=== PATIENT | female | born 1970 | race Caucasian/White ===

== ENCOUNTER 2017-07-08 21:10 | Emergency (ER) | payer OTHER ==
[~2017-07-08] VITALS: Ht 177.8 cm; Wt 50.0 kg
[2017-07-08 22:04] VITALS: BP 129/88
[2017-07-08] MEDS ORDERED: LIDOCAINE 1% MDV 20ML VIAL IM ONE (22:15)
[2017-07-08] MEDS ORDERED: ADACEL/BOOSTRIX VACCINE (DIPHTH/PERTUSS/ACELL/TETANUS)0.5ML SYR (90715) IM ONE (22:15)
[2017-07-08] MEDS ORDERED: AUGMENTIN 875 MG TAB PO ONE (22:15)
[2017-07-08] MEDS ORDERED: AUGM875T28 PO (22:59)
[2017-07-08] MEDS ORDERED: IBUPROFEN 400 MG TAB As Ordered ONE (23:09)
[2017-07-08] MEDS ORDERED: IBUPROFEN 400 MG TAB PO ONE (23:15)
== END 2017-07-08 23:16 | disposition home or self-care (01) ==
LOC: M ED 21:10
DX: S01.551A Open bite of lip, initial encounter (principal); W54.0XXA Bitten by dog, initial encounter; Y92.89 Other specified places as the place of occurrence of the external cause; Y93.89 Activity, other specified; Y99.8 Other external cause status; F17.210 Nicotine dependence, cigarettes, uncomplicated

== ENCOUNTER 2018-10-30 21:44 | Inpatient (IN) | payer OTHER, SELFPAY ==
[~2018-10-30] VITALS: Ht 177.8 cm; Wt 54.3 kg
[~2018-10-30 21:44] MED LIST: AUGM875T28 PO
[2018-10-30] MEDS ORDERED: METOPROLOL 5 MG/5 ML VIAL IV STA (22:30)
[2018-10-30] MEDS ORDERED: FLECAINIDE 50MG TABLET PO ONE (22:45)
[2018-10-30 22:53] LABS: BASO # 0.1 10^3/uL (0.0-0.2); BASO % 0.6 % (0.0-1.0); EOS # 0.5 10^3/uL (0.0-0.50); EOS % 2.6 % (0.0-3.0); LYMPH % 10.6 % (24.0-44.0); MEAN CORPUSCULAR HEMOGLOBIN 30.9 pg (27.0-33.0); MEAN CORPUSCULAR VOLUME 90.7 fl (80.0-96.0); MONO # 0.9 10^3/uL (0.0-0.8); MONO % 4.9 % (0.0-5.0); NEUTROPHILS # 14.9 10^3/uL (1.8-7.7); NEUTROPHILS % 80.2 % (36.0-66.0); PLATELET COUNT, AUTOMATED 291 10^3/uL (150-450); RED BLOOD COUNT 5.18 10^6/uL (4.00-5.40); WHITE BLOOD COUNT 18.6 10^3/uL (4.0-10.0)
[2018-10-30] MEDS ORDERED: ONDANSETRON 4MG/2ML VIAL (J2405) IV ONE (23:00)
[2018-10-30 23:27] LABS: BLOOD UREA NITROGEN 19 MG/DL (7-18); CALCIUM LEVEL 9.3 MG/DL (8.5-10.1); CARBON DIOXIDE LEVEL 21 MEQ/L (21-32); CHLORIDE LEVEL 95 MEQ/L (98-107); CREATININE FOR GFR 0.98 MG/DL (0.55-1.30); FREE THYROXINE INDEX 3.9 % (1.3-4.8); GLOMERULAR FILTRATION RATE > 60.0 (>58); GLUCOSE, FASTING 175 MG/DL (70-100); POTASSIUM SERUM 4.5 MEQ/L (3.5-5.1); SODIUM LEVEL 132 MEQ/L (136-145); T UPTAKE 32 % (30-39); THYROXINE (T4) 12.2 UG/DL (4.5-12.0)
[2018-10-30] MEDS ORDERED: ISOVUE-370 76% 100ML VIAL (Q9967) As Ordered ONE (23:51)
[2018-10-30 23:56] LABS: CK-MB VALUE MASS < 1.0 NG/ML (<3.6); CPK CREATINE PHOSPHOKINASE 38 U/L (26-192); MB/CK RELATIVE INDEX 2.63 (< OR =4); NT-PRO BNP 16196 PG/ML (<125); TROPONIN I 0.02 NG/ML (< 0.10)
[2018-10-31] VITALS (43 sets, daily range): BP systolic 71–105; BP diastolic 51–82; O2SAT 91
[2018-10-31] MEDS ORDERED: ALEV220T26 PO (00:39)
[2018-10-31] MEDS ORDERED: BENA25CA4 PO (00:39)
--- NOTE | 2018-10-31 00:49 | REPVR ---
EXAM: CT Angiography Chest With Contrast EXAM DATE/TIME: 10/30/2018 12:01 AM CLINICAL HISTORY: 48 years old, female; Signs and symptoms; Shortness of breath; Additional info: Eval r lung mass TECHNIQUE: Imaging protocol: Axial computed tomographic angiography images of the chest with intravenous contrast using CT angiography protocol. Coronal and sagittal reformatted images were created and reviewed. 3D rendering: MIP reconstructed images were created and reviewed. Radiation optimization: All CT scans at this facility use at least one of these dose optimization techniques: automated exposure control; mA and/or kV adjustment per patient size (includes targeted exams where dose is matched to clinical indication); or iterative reconstruction. Contrast material: isovue 370 Contrast volume: 75 ml Contrast route: iv COMPARISON: CR Chest, 1 view 10/30/2018 11:06 PM FINDINGS: No focal pulmonary artery filling defect to suggest acute pulmonary embolus. No thoracic aortic aneurysm or dissection. Prominent mediastinal and hilar lymphadenopathy is present. There is an infiltrative right hilar mass attenuating the distal right mainstem bronchus and segmental upper, middle and lower lobe bronchi with peripheral consolidation or postobstructive change. Large right and small left pleural effusions are present and there are diffuse ground glass densities in both lungs. No evidence of pneumothorax or pulmonary edema. No adrenal mass. No destructive bony abnormality. Likely exophytic upper pole 2 cm left renal cyst measuring simple fluid density IMPRESSION: No evidence of acute pulmonary embolus. Extensive infiltrative process in the mediastinum and right hilum with mass effect upon the right lung bronchi with peripheral consolidation or atelectasis and large pleural effusion, right larger than left. This is concerning for neoplastic or infiltrative process, with underlying diffuse lung infiltrates. Electronically signed by: Sacha Weldon On 10/31/2018 00:48:57 AM
[2018-10-31] MEDS ORDERED: NS 1,000 ML IV ONE ×3 (01:00→01:45)
[2018-10-31] MEDS ORDERED: ENOXAPARIN 40 MG/0.4 ML SYRINGE (J1650) SC SCH (01:30)
[2018-10-31] MEDS ORDERED: SODIUM CHLORIDE 0.9% 1000ML IV STA (01:40)
[2018-10-31] MEDS ORDERED: VANCOMYCIN 1000 MG/20 ML VIAL (J3370) IP ONE (01:45)
[2018-10-31] MEDS ORDERED: ENOXAPARIN 40 MG/0.4 ML SYRINGE (J1650) SC ONE (01:45)
--- NOTE | 2018-10-31 01:53 | HPEPDOC ---
[facility] Medical History & Physical Date of Admission Oct 31, 2018 Primary Care Physician: Afsaneh Batista History and Physical CHIEF COMPLAINT: Persistent cough HISTORY OF PRESENT ILLNESS: Patient's a 48 female with no reported past medical history brought into the ER with A. fib RVR with heart rate in the 250s. In ER patient was given flecainide and diltiazem with conversion to sinus rhythm. Patient appeared comfortable and only reported a persistent cough for the past 3 months. She was found to be hypotensive with elevated white count and a large right hilar mass with extensive infiltrative process in the ER. She is a current smoker of one half pack per day for many years. She reports a 15 lbs weight loss in the past 3 months but denies any fever, chills, or any other complaints. She remained hypotensive in ER despite IV resuscitation. Normally does not follow any doctor and reported no medical problems and does not take any medications prior to this admission. PAST MEDICAL HISTORY: None reported PAST SURGICAL HISTORY: b/l Hip surgeries Tonsillectomy SOCIAL HISTORY: extensive smoking history for many years, currently at 1/2 ppd. Social alcohol use and denies any illicit drug use. FAMILY HISTORY: No known Medical problems ALLERGIES: Please see below. REVIEW OF SYSTEMS: 10 point review of system negative except as stated in HPI HOME MEDICATIONS: Please see below. PHYSICAL EXAMINATION: General: No acute distress, Alert, cachectic Eyes: Normal sclera, EOMI, GENE HENT: Atraumatic, neck supple, moist mucous membranes Cardiovascular: Normal rate, normal rhythm. No murmurs appreciated. Pulmonary: Decrease R. sided breath sounds. GI: Soft, nontender, nondistended Skin: Warm and dry Neuro: CN grossly intact. No focal deficits. Strengths equal b/l. Psych: oriented x 3 LABORATORY DATA: See below. IMAGING: CTA- IMPRESSION: No evidence of acute pulmonary embolus. Extensive infiltrative process in the mediastinum and right hilum with mass effect upon the right lung bronchi with peripheral consolidation or atelectasis and large pleural effusion, right larger than left. This is concerning for neoplastic or infiltrative process, with underlying diffuse lung infiltrates. MICROBIOLOGY: Please see below. ASSESSMENT AND PLAN: 1. R. sided lung mass with pleural effusions - CT report as above. Likely malignancy given extensive smoking history. - Oxygen support. - Consult Onc and Pulm. Will need tissue biopsy for treatment initiation. 2. new onset Atrial fibrillation - Start on therapeutic Lovenox. - Currently in sinus rhythm s/p flecanide and Diltiazem. - Will start on BB for rate control. - Obtain ECHO. 3. Sepsis 2/2 likely obstructive PNA - Hypotensive. To complete 30cc/kg IVF bolus. - Start broad spectrum aBx. - f/u sputum and blood cultures. - Will likely need initiation of pressors as BP is not improving yet at this time. - f/u Lactic acid. WBC 18, hypotensive. Patient is high risk due to septic shock and R. lung mass likely 2/2 malignancy Estimated length of stay 4-5 days with expected disposition to to home. Vital Signs Vital Signs Date Time Temp Pulse Resp B/P (MAP) Pulse Ox O2 Delivery O2 Flow Rate FiO2 10/31/18 01:21 81/52 (62) 10/31/18 01:17 83 30 82 Non-Rebreather 10/31/18 01:02 6.0 10/30/18 21:44 97.6 Laboratory Data Labs 24H Laboratory Tests 2 10/30/18 22:44: Immature Granulocyte % (Auto) 1.1, White Blood Count 18.6H, Red Blood Count 5.18, Hemoglobin 16.0H, Hematocrit 47.0, Mean Corpuscular Volume 90.7, Mean Corpuscular Hemoglobin 30.9, Mean Corpuscular Hemoglobin Concent 34.0, Red Cell Distribution Width 13.2, Platelet Count 291, Neutrophils (%) (Auto) 80.2H, Lymphocytes (%) (Auto) 10.6L, Monocytes (%) (Auto) 4.9, Eosinophils (%) (Auto) 2.6, Basophils (%) (Auto) 0.6, Neutrophils # (Auto) 14.9H, Lymphocytes # (Auto) 2.0, Monocytes # (Auto) 0.9H, Eosinophils # (Auto) 0.5, Basophils # (Auto) 0.1, Nucleated Red Blood Cells % (auto) 0.0, Anion Gap 16, Glomerular Filtration Rate > 60.0, Blood Urea Nitrogen 19H, Creatinine 0.98, Sodium Level 132L, Potassium Level 4.5, Chloride Level 95L, Carbon Dioxide Level 21, Calcium Level 9.3, Total Creatine Kinase 38, Creatine Kinase MB < 1.0, Creatine Kinase MB Relative Index 2.63, Troponin I 0.02, UX-Akk-J-Type Natriuretic Peptide 03377K, Thyroid Stimulating Hormone (TSH) 5.390H, Free Thyroxine Index 3.9, Thyroxine (T4) 12.2H, Triiodothyronine (T3) Uptake 32 CBC/BMP Laboratory Tests 10/30/18 22:44 Red Blood Count 5.18, Mean Corpuscular Volume 90.7, Mean Corpuscular Hemoglobin 30.9, Mean Corpuscular Hemoglobin Concent 34.0, Red Cell Distribution Width 13.2 , Neutrophils (%) (Auto) 80.2 H, Lymphocytes (%) (Auto) 10.6 L, Monocytes (%) (Auto) 4.9, Eosinophils (%) (Auto) 2.6, Basophils (%) (Auto) 0.6, Neutrophils # (Auto) 14.9 H, Lymphocytes # (Auto) 2.0, Monocytes # (Auto) 0.9 H, Eosinophils # (Auto) 0.5, Basophils # (Auto) 0.1, Calcium Level 9.3, Total Creatine Kinase 38 Home Medications Scheduled PRN Diphenhydramine HCl (Benadryl Allergy) 25 Mg Cap, 25 MG PO DAILY PRN for ALLERGIES Naproxen Sodium (Aleve) 220 Mg Tab, 220 MG PO BID PRN for PAIN Allergies Coded Allergies: No Known Allergies (Unverified , 07/08/17) FRANC GARCIA MD Oct 31, 2018 01:53
[2018-10-31] MEDS ORDERED: ENOXAPARIN 60 MG/0.6 ML SYR (J1650) SC SCH ×2 (02:00→03:00)
[2018-10-31] MEDS ORDERED: VANCOMYCIN HCL 1,000 MG, VIAL MATE ADAPTER 1 EACH in D5W 250 ML IV ONE (02:00)
[2018-10-31] MEDS ORDERED: METOPROLOL TART 25 MG TABLET PO SCH ×2 (03:15→09:00)
--- NOTE | 2018-10-31 05:34 | PHACANCOPD ---
PHARMACY VANCOMYCIN DOSING Pt Demographics Demographics Patient Age:48 , Weight:55.400 , Gender: female Adjusted Body Weight Date: 10/31/18, Adjusted Body Weight: Kg Vancomycin Vancomycin indication: PLEURAL EFFUSION,LUNG MASS/SEPSIS Vancomycin Target Ranges: 15-20 mcg/ml Vancomycin Load Y/N: No Load Dose Date Time Vancomycin Load Dose: Date: Time: Vancomycin Dose Date: 10/31/18. Current Vancomycin Dose: [1 GM Q12H ] Intermittent Dosing?: No Labs Labs Laboratory Tests 10/30/18 22:44 Red Blood Count 5.18, Mean Corpuscular Volume 90.7, Mean Corpuscular Hemoglobin 30.9, Mean Corpuscular Hemoglobin Concent 34.0, Red Cell Distribution Width 13.2, Neutrophils (%) (Auto) 80.2 H, Lymphocytes (%) (Auto) 10.6 L, Monocytes (%) (Auto) 4.9, Eosinophils (%) (Auto) 2.6, Basophils (%) (Auto) 0.6, Neutrophils # (Auto) 14.9 H, Lymphocytes # (Auto) 2.0, Monocytes # (Auto) 0.9 H, Eosinophils # (Auto) 0.5, Basophils # (Auto) 0.1, Calcium Level 9.3, Total Creatine Kinase 38 Micro Microbiology 10/31/18 Blood Culture, Received Pending 10/31/18 Blood Culture, Received Pending Creatinine Clearance Date:10/31/18. Creatinine Clearance: [58.5].CALCULATED Pending Labs Vancomycin trough scheduled for 11/01@1500- Assessment and Plan Maintaining Current Dose?: Yes Reason for dose change: No Dose Change Pharmacist Note Pharmacist Note Date: 10/31/18. Pharmacist note:48YOF admitted w/SOB.pleural effusion,sepsisScr=0.98,Calculated CRCL=58.5,Receiving Pip[/Tazo 4.5 grams IV T1Ylune and Vancomycin per Pharmacy consult. Vancomycin 1gram administered @0423, then will continue with 1 gram IV [id number] to begin 10/31@1600.First trough is acheduled for 11/01@1500(prior to the 4th dose).Will continue to follow and make dosing changes as necessary YAMILKA [facility] Oct 31, 2018 05:34
[2018-10-31] MEDS: PIPERACILLIN/TAZOBACTAM SOD 4.5 GM in D5W MINI-BAG PLUS 50 ML IV SCH ×4 (05:40→23:56)
[2018-10-31 06:51] LABS: HEMATOCRIT 34.4 % (36.0-47.0); MEAN CORPUSCULAR HEMOGLOBIN 30.3 pg (27.0-33.0); MEAN CORPUSCULAR HGB CONC 33.4 g/dl (32.0-36.5); MEAN CORPUSCULAR VOLUME 90.8 fl (80.0-96.0); PLATELET COUNT, AUTOMATED 203 10^3/uL (150-450); RED BLOOD COUNT 3.79 10^6/uL (4.00-5.40); WHITE BLOOD COUNT 17.6 10^3/uL (4.0-10.0)
[2018-10-31 06:58] LABS: HEMOGLOBIN 11.5 g/dl (12.0-15.5)
[2018-10-31 07:11] LABS: BLOOD UREA NITROGEN 19 MG/DL (7-18); CARBON DIOXIDE LEVEL 25 MEQ/L (21-32); CHLORIDE LEVEL 102 MEQ/L (98-107); CREATININE FOR GFR 0.69 MG/DL (0.55-1.30); GLOMERULAR FILTRATION RATE > 60.0 (>58); GLUCOSE, FASTING 128 MG/DL (70-100); POTASSIUM SERUM 3.9 MEQ/L (3.5-5.1); SODIUM LEVEL 135 MEQ/L (136-145)
--- NOTE | 2018-10-31 07:38 | ECGEPIP ---
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
--- NOTE | 2018-10-31 07:40 | ECGEPIP ---
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
[2018-10-31 07:56] LABS: ALBUMIN 1.6 GM/DL (3.2-5.2); ALT/SGPT 9 U/L (12-78); BILIRUBIN,DIRECT 0.2 MG/DL (0.0-0.2); BILIRUBIN,TOTAL 0.4 MG/DL (0.2-1.0); TOTAL PROTEIN 5.1 GM/DL (6.4-8.2)
--- NOTE | 2018-10-31 08:22 | REP ---
Clinical: Line placement. Technique: Portable semiupright view of the chest. Comparison: 10/30/2018. Findings: Right IJ line with tip in the SVC. Diffuse bilateral alveolar and interstitial infiltrates (right greater than left) along with moderate/large right pleural effusion again noted. No obvious pneumothorax. Mediastinum and cardiac silhouette are relatively stable. Skeletal structures are intact. Impression: Right IJ line in satisfactory position without pneumothorax. Diffuse bilateral infiltrates (right greater than left) and moderate/large right pleural effusion. Electronically Signed by Khadar Padilla MD 10/31/2018 08:13 A
--- NOTE | 2018-10-31 08:36 | REP ---
Clinical: Dyspnea. Comparison: None. Findings: Diffuse bilateral infiltrates (right greater than left) and moderate right pleural effusion. Mild cardiomegaly cannot be excluded. Skeletal structures appear intact. Impression: Multifocal infiltrates (right greater than left) and moderate right pleural effusion. Electronically Signed by Khadar Padilla MD 10/31/2018 08:27 A
[2018-10-31] MEDS ORDERED: MAGNESIUM SULFATE 1 GM/100 ML D5W BAG (10MG/ML) (J3475) As Ordered ONE (09:51)
[2018-10-31] MEDS ORDERED: MAG SULF 1GM/100ML (MAG RUN) 1 GM in APPROPRIATE DILUENT 1 EA IV ONE (10:00)
[2018-10-31] MEDS ORDERED: AMIODARONE HCL 150 MG/100 ML PREMIXED BAG (NEXTERONE) As Ordered ONE (10:01)
[2018-10-31] MEDS ORDERED: AMIODARONE HCL 150 MG in APPROPRIATE DILUENT 1 EA IV STA ×2 (10:07→21:57)
[2018-10-31 10:20] LABS: CK-MB VALUE MASS < 1.0 NG/ML (<3.6); CPK CREATINE PHOSPHOKINASE 21 U/L (26-192); MB/CK RELATIVE INDEX 4.76 (< OR =4); TROPONIN I 0.02 NG/ML (< 0.10)
[2018-10-31] MEDS ORDERED: MIDAZOLAM INJ 2 MG/2 ML VIAL (J2250) As Ordered ONE (10:25)
[2018-10-31] MEDS ORDERED: LIDOCAINE 1% MDV 20ML VIAL As Ordered ONE (10:26)
[2018-10-31] MEDS ORDERED: AMIODARONE HCL 360 MG in APPROPRIATE DILUENT 1 EA IV SCH (11:00)
[2018-10-31] MEDS ORDERED: MIDAZOLAM INJ 2 MG/2 ML VIAL (J2250) IV STA (11:29)
[2018-10-31] MEDS ORDERED: LIDOCAINE 1% MDV 20ML VIAL IM ONE (11:30)
[2018-10-31] MEDS ORDERED: BISACODYL 10 MG SUPP PR PRN (11:45)
[2018-10-31] MEDS ORDERED: NORCO, ANEXSIA 5/325MG TABLET (HYDROcodone/ACETAMINOPHEN) PO PRN (11:45)
[2018-10-31] MEDS ORDERED: LEVALBUTEROL 1.25 MG/0.5 ML CONCENTRATE NEB NEB PRN (11:45)
[2018-10-31] MEDS ORDERED: PERCOCET 5MG/325MG TAB PO PRN ×2 (11:45)
[2018-10-31] MEDS ORDERED: KETOROLAC 30 MG/ML VIAL (J1885) IV ONE (12:00)
[2018-10-31] MEDS: PANTOPRAZOLE 40MG TAB (PROTONIX) PO SCH (12:00)
--- NOTE | 2018-10-31 12:01 | REP ---
Clinical: Status post chest tube. Comparison: 10/31/1998 02:38 a.m. Findings: Right chest tube identified. A moderate right pneumothorax is now appreciated without obvious pleural fluid. Bilateral infiltrates again identified. Right IJ line with tip in the SVC. Mediastinum and cardiac silhouette are stable. Skeletal structures are intact. Impression: 1. Right chest tube with moderate right hemothorax. Right pleural fluid has been evacuated. 2. Bilateral infiltrates unchanged. Electronically Signed by Khadar Padilla MD 10/31/2018 11:52 A
--- NOTE | 2018-10-31 12:36 | CR ---
DATE OF CONSULTATION: 10/31/2018 REFERRING PHYSICIAN: Hospitalist Service, Dr. Rodriguez. REASON FOR CONSULTATION: Shortness of breath and pleural effusion along with a lung mass. HISTORY OF PRESENT ILLNESS: Patient is a 48-year-old white female whose story starts approximately three months ago when she started to develop a cough. It was a dry nonproductive cough. In the last few weeks she has become more progressively shortness of breath such that the last couple of days prior to admission, she has had trouble even walking around her house. She does not complain of orthopnea or paroxysmal nocturnal dyspnea, however. She does not complain of leg swelling. There is no chest pain, no chest discomfort. As noted above her cough is not productive but quite paroxysmal and intense. With her cough she sometimes becomes nauseous. She has lost about 15 pounds of weight over the last two months because of decreased appetite. There is no dysphagia. She is able to swallow. There has been no fever, chills or sweats. PAST MEDICAL ILLNESSES: None. MEDICATIONS AT HOME: None. PAST SURGERIES: Two hip replacements. Tonsillectomy in the remote past. TRAVEL HISTORY: None to the [facility] or [facility]. HABITS: Smoked one pack per day of [employer] Golds until about 3 weeks ago. Drinks at least 20 shots of tequila a day. No illicit drugs. 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 There is no asbestos exposure. There is no tuberculosis exposure. PETS: There are no dogs, birds or cats at home. FAMILY HISTORY: Noncontributory to the acute situation. REVIEW OF SYSTEMS: Eyes: Without diplopia, without amaurosis fugax. Constitutional: See HPI. Without fever, chills or sweats. Nose: Without epistaxis. Mouth: Has her own teeth. Respiratory: See HPI. Cardiac: See HPI. Without chest pain or anginal type pain. Without tachycardia or palpitations. Gastrointestinal (GI): Without nausea, vomiting, diarrhea or constipation, except for when she goes into severe paroxysmal cough. Without melena or hematochezia, hematemesis or abdominal pain. Genitourinary (): Without dysuria, hematuria or prior history of renal stones. Neurologic: Without paresthesias, paralysis or prior seizures. Endocrine: Without diabetes. Without thyroid disease. Hematologic: Without prolonged bleeding times. Psychiatric: Without pathologic psychoses, depression or anxiety. PHYSICAL EXAMINATION: Temperature is 96.4 with a heart rate of 88, now in a sinus rhythm although she has been in ventricular tachycardia for which she is receiving amiodarone. Respiratory rate is 28 to 26 with some use of accessory muscles, particularly cervical accessory muscles. She gets short of breath even speaking full sentences. She is 88% saturated on 3 liters nasal cannula and her blood pressure is 92/71. Eyes: Pupils equal, round and reactive to light. Extraocular muscles intact. Sclera anicteric. Head: Normocephalic. Nose: Without deformity. Mouth: Shows her mucous membranes to be pink and moist. Lips and commissures are without lesions. There is no thrush. She has a tongue piercing. Neck is supple. There is no jugular venous distention, no subcutaneous emphysema. Trachea is midline. There is no thyromegaly and no lymphadenopathy. She has 2+ carotid upstrokes. No bruits. Cardiac: Without murmurs, clicks, gallops or rubs. I cannot feel his point of maximal impulse (PMI), S1 and S2 are normal. Lungs: Show decreased breath sounds in the right lower hemithorax with E:A egophony. Left side shows some inspiratory rhonchi which do not all disappear with coughing. She has a dull percussion note and partial E:A egophony in the right lower hemithorax. Abdomen: Soft and nontender. Bowel sounds are positive. There is no hepatomegaly. There is no costovertebral angle (CVA) tenderness. Extremities: Show no pretibial edema, no calf tenderness. No differential swelling of the upper extremities. Skin: Warm and dry, and perfused without cyanosis or mottling including that of the nail beds and the knees. Neuro: Shows II through XII intact. Gross motor and gross sensation intact. Gait is not tested. Psychiatric: Shows her to be awake, alert and oriented times three, with appropriate mood, affect, with appropriate anxiety from shortness of breath. INVESTIGATIONS: White count is 17.6, with a hemoglobin and hematocrit of 11.5 and 34.4 respectively, and a platelet count of 203. Chemistries show essentially normal electrolytes with BUN and creatinine of 19 and 0.69. Her lactic acid this morning was 3.0 and 2.3. Glucose is 128 with a calcium of 7.0 with a corresponding albumin of 1.6. AST and ALT are normal. Her TSH is 5.39, within normal limits. Chest x-ray taken yesterday in the emergency room shows a diffuse alveolar pattern in the right lung with an elevated diaphragm and a blunted costophrenic angle. Her left lung also has a reticular pattern. There is no lateral view. Her chest CT done yesterday under CT angio protocol did not show a pulmonary embolism. She had a large pleural effusion on the right hand side. There looks to be a large mass in the right upper lobe. There may be an element of post obstructive atelectasis. She has a ground glass appearance in the lingular aspects of the left upper lobe. She does not have pathological mediastinal and paratracheal lymphadenopathy. There is a distinct fullness below the hayder, although that may be direct mass effect rather than a lymph node. She has periaortic and hilar nodes on the left. There is no pericardial effusion. IMPRESSION: 1. Right upper lobe lung mass. 2. Large pleural effusion. 3. Increasing shortness of breath secondary to 1 and 2 above. 4. Ventricular tachycardia being treated with amiodarone. 5. Hypoxia. 6. Lactic acidemia. 7. Probable post obstructive atelectasis. PLAN AND DISCUSSION: I will immediately place a chest tube to drain her of her pleural effusion. That should symptomatically help her shortness of breath. We will send it away for the requisite laboratories including cytologies, hematology, chemistries and bacteriologies. I do not see any lumps and bumps on the pleural surface, but I suspect this is going to prove to be malignant.
[2018-10-31 12:43] LABS: CK-MB VALUE MASS < 1.0 NG/ML (<3.6); CPK CREATINE PHOSPHOKINASE 25 U/L (26-192); TROPONIN I 0.03 NG/ML (< 0.10)
[2018-10-31] MEDS: MOM 30ML SUSPENSION UDC PO SCH (12:58)
[2018-10-31 13:23] LABS: PH BODY FLUID 7.598 UNITS (NOT ESTABLISHED); SOURCE, BODY FLUID pH PLEURAL
[2018-10-31 13:30] LABS: APPEARANCE, BODY FLUID HAZY (CLEAR); PLEURAL FL COLOR AMBER (COLORLESS); SOURCE, BODY FLUID PLEURAL
[2018-10-31 13:51] LABS: MAGNESIUM LEVEL 2.3 MG/DL (1.8-2.4)
--- NOTE | 2018-10-31 14:06 | CR ---
DATE OF CONSULTATION: 10/31/2018 HISTORY OF PRESENT ILLNESS: The patient is a 48-year-old female with no reported medical history who presented with a complaint of a cough for the past 3 months with increasing shortness of breath and dyspnea on exertion. The patient had also reported a decreased appetite in the past few months with a significant weight loss of approximately 15 pounds in the past 2 months. The patient reports that the cough has been nonproductive. There is no hemoptysis noted. She denied any significant wheezing or chest pain. She has started noticing worsening shortness of breath and dyspnea in the past few days. However, she had been attempting to see if her symptoms would resolve on their own, as she does not have any insurance until it progressed to the point where she was short of breath with very limited activity, and so she presented to the emergency department (ED). She denied any increased lower extremity edema. She had no abdominal pain. Occasionally nauseous with coughing but no vomiting. She did report a history of some palpitations occasionally in the past few months, as well. She denied having any history of fevers or chills. No night sweats. In the ED, the patient was found to be tachycardic. Her heart rate initially on admission was above 220. She was also hypotensive on admission. The patient was given approximately 3 liters of normal saline boluses in the ED, as well as intravenous (IV) Cardizem, metoprolol, and also flecainide. The patient then converted into a sinus rhythm. She was also hypoxemic, as well, on admission and tachypneic. She was placed on nasal cannula. However, had required a nonrebreather at one point, as well. This morning, on examination, the patient is in sinus rhythm. However, she has frequent runs of nonsustained ventricular tachycardia (NSVT) and occasionally will go into rapid atrial fibrillation. She is still tachypneic with a respiratory rate around 28, and her blood pressures are borderline. The patient is requiring 4 liters of nasal cannula oxygen supplementation, and she will desaturate with talking or any minimal movement. She does report feeling better, however, since being admitted. Her shortness of breath has improved slightly, and her coughing has also slightly improved. PAST MEDICAL HISTORY: None. PAST SURGICAL HISTORY: History of hip replacements and a tonsillectomy. HOME MEDICATIONS: None. SOCIAL HISTORY: The patient is a former smoker, smoked about one pack a day for the past 30 years, quit a few weeks ago. She also drinks approximately twenty shots of tequila a day. She denies any other illicit drug use. 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 Denied any exposure to any toxins or chemicals. No exposure to asbestos or tuberculosis. She has no recent travel. FAMILY HISTORY: Denied a family history of lung cancer. PHYSICAL EXAMINATION: Vital signs: Temperature 96.4, pulse 88, respirations 27, blood pressure 93/65, oxygen (O2) saturation 92% on 4 liters nasal cannula. General: The patient is a thin female who is lying in bed in some mild respiratory distress. She is tachypneic and able to speak in short sentences. She is alert and oriented and responding appropriately. HEENT: Normocephalic, atraumatic. Mucous membranes are moist. She has a tongue piercing in place. There is no palpable cervical adenopathy. Cardiac is regular rate and rhythm. Normal S1, S2. No murmurs auscultated. Lungs: Diminished breath sounds in the right mid and lower lung parnell with some dullness to percussion. Left side with some crackles and occasional rhonchi. No significant wheezing. Abdomen is soft, nontender, nondistended. There is positive bowel sound. Extremities: There is no lower extremity edema bilaterally. LABORATORIES: WBC 17.6, hemoglobin 11.5, platelets 203. Chemistry: Sodium 135, potassium 3.9, chloride 102, bicarbonate 25, BUN 19, creatinine 0.69, glucose 128, lactic acid initially 3.0 -- repeat was 2.3, albumin is 1.6, BNP was 16,196, TSH is 5.39, free T4 was 3.9, and T4 was 12.2. CT angiography did not show any evidence of pulmonary embolism. There was mediastinal and hilar lymphadenopathy noted, as well as a right hilar mass with some extrinsic narrowing of the right upper lobe, middle lobe, and bronchus intermedius. There was also some consolidation and possible postobstructive atelectasis in the right lung. There was also a large right pleural effusion causing some compressive atelectasis. On the left, there is a small pleural effusion and some ground-glass opacities, more in the left upper lobe and lingula and some more denser consolidation and ground-glass opacities in the left lower lobe. There is no significant pericardial effusion. ASSESSMENT AND PLAN: The patient is a 48-year female who is a former smoker with no other reported medical history who presented with increasing shortness of breath and dyspnea on exertion, as well as with a chronic nonproductive cough for the past few months and weight loss. She was found to have new-onset atrial fibrillation on admission, was in rapid ventricular response (RVR), was given medications, including Cardizem, metoprolol, and flecainide and was chemically cardioverted to sinus rhythm. The patient continues to have periods of ventricular ectopy, however, while in sinus with runs of NSVT noted. She will also periodically go into rapid atrial fibrillation. Her initial cardiac enzymes were negative. However, her brain natriuretic peptide (BNP) was elevated at 16,196. The patient was also hypotensive on admission with lactic acidosis and leukocytosis. The patient likely with severe sepsis likely secondary to pneumonia. She was given about 3-4 liters of normal saline boluses with improvement in her blood pressure and in her lactic acid. She is currently maintaining a blood pressure without a need for vasopressor support, and she was started on broad-spectrum antibiotics with vancomycin and Zosyn. The patient's imaging showed evidence of a large right pleural effusion with a right hilar mass causing some extrinsic compression and possible postobstructive pneumonia on thatright side. There was also mediastinal and hilar adenopathy, as well. She had a small effusion on the left side and some ground- glass opacities and consolidation, as well, consistent with possible pneumonia. The patient with acute hypoxemic respiratory failure secondary to a large pleural effusion, as well as pneumonia bilaterally. The patient also with severe sepsis, likely secondary to pneumonia with a possible complicated parapneumonic effusion versus malignant effusion, given the suspicious finding of a right hilar mass. The patient was seen by cardiothoracic surgery and had a chest tube placed on the right side with drainage of 2 liters of fluid. A postprocedural chest x-ray shows the evacuation of the right pleural fluid and a right pneumothorax. Likely, pneumothorax ex vacuo. There is a right internal jugular (vein) (IJ) with the tip located in right atrium and there are infiltrates noted bilaterally with a more central hilar mass on the right side and infiltrates in the left upper lobe and left lower lobe. Continue broad-spectrum antibiotics with vancomycin and Zosyn. Would followup blood cultures and sputum cultures. Continue with nasal cannula oxygen supplementation to maintain O2 saturation above 90%. If patient is noted to be in increasing respiratory distress or has any change in mental status, would get an arterial blood gas (ABG) done at that time to evaluate for any hypercarbia. Given her persistent ventricular ectopy, as well as atrial fibrillation with borderline blood pressures, will hold beta blockers and will start the patient on amiodarone with IV loading dose. Will also pull back central line 3cm as it is in right atrium and may be contributing to her ectopy. Will followup repeat cardiac enzymes and echocardiogram. Continue with incentive spirometer and with Xopenex nebulizer. Continue chest tube to suction and will followup results of the fluid studies, including cytology. Would hold off on any further fluid hydration at this time. If patient has worsening hypertension, would start her on pressor support with Levophed. Discussed with the patient that depending on the results of her pleural fluid studies that she may require further diagnostic procedure, including a bronchoscopy with biopsy and endobronchial ultrasound (EBUS) for her adenopathy. continue with deep venous thrombosis (DVT) prophylaxis with Lovenox and sequential compression devices (SCDs). FULL CODE. Total critical care time spent not including any procedures approximately 1 hour and 50 minutes. FRED
[2018-10-31 14:21] LABS: AMYLASE, BODY FLUID 33 U/L (NOT ESTABLISHED); CHOLESTEROL, BODY FLUID 64 MG/DL (NOT ESTABLISHED); LDH, BODY FLUID 1225 U/L (NOT ESTABLISHED); SOURCE, BODY FLUID ALBUMIN PLEURAL; SOURCE, BODY FLUID AMYLASE PLEURAL; SOURCE, BODY FLUID CHOL PLEURAL; SOURCE, BODY FLUID GLUCOSE PLEURAL; SOURCE, BODY FLUID LDH PLEURAL; SOURCE, BODY FLUID TOT PROTEIN PLEURAL; SOURCE, BODY FLUID TRIG PLEURAL; TOTAL PROTEIN, BODY FLUID 3.6 G/DL (NOT ESTABLISHED); TRIGLYCERIDE, BODY FLUID 26 MG/DL (NOT ESTABLISHED)
[2018-10-31] MEDS ORDERED: NOREPINEPHRINE 4 MG/4 ML AMP As Ordered ONE ×2 (14:52→14:55)
[2018-10-31 14:58] LABS: HEMATOCRIT 34.8 % (36.0-47.0); HEMOGLOBIN 11.7 g/dl (12.0-15.5); MEAN CORPUSCULAR HEMOGLOBIN 30.5 pg (27.0-33.0); MEAN CORPUSCULAR HGB CONC 33.6 g/dl (32.0-36.5); MEAN CORPUSCULAR VOLUME 90.9 fl (80.0-96.0); PLATELET COUNT, AUTOMATED 227 10^3/uL (150-450); RED BLOOD COUNT 3.83 10^6/uL (4.00-5.40); WHITE BLOOD COUNT 19.9 10^3/uL (4.0-10.0)
--- NOTE | 2018-10-31 15:00 | REP ---
Clinical: Pneumothorax. Technique: Portable upright view. Comparison: 10/31/2018 at 11:30 a.m. Findings: Right-sided chest tube in stable position. Small residual right hydropneumothorax with small amount of pleural fluid causing blunting of the costophrenic angle and small pleural air gap at the apex of approximately 16 mm. Diffuse bilateral interstitial and alveolar infiltrates are again identified and similar to prior examination. Skeletal structures intact. Right IJ line with tip in the SVC. Impression: 1. Small residual right hydropneumothorax as described above. 2. Diffuse bilateral alveolar and interstitial infiltrates essentially unchanged. Electronically Signed by Khadar Padilla MD 10/31/2018 02:51 P
[2018-10-31] MEDS: NOREPINEPHRINE BITARTRATE 8 MG in D5W 492 ML IV SCH ×4 (15:05→16:00)
--- NOTE | 2018-10-31 15:35 | REP ---
Clinical: Pneumothorax. Technique: Portable upright view. Comparison: 10/31/2018 at 02:40 p.m. Findings: Right-sided chest tube in similar position. Small residual right hydropneumothorax with small amount of pleural fluid causing blunting of the costophrenic angle and small pleural air gap at the apex remain unchanged. Diffuse bilateral interstitial and alveolar infiltrates are again identified and similar to prior examination. Skeletal structures intact. Right IJ line with tip in the SVC. Impression: 1. Small residual right hydropneumothorax as described above. 2. Diffuse bilateral alveolar and interstitial infiltrates essentially unchanged. Electronically Signed by Khadar Padilla MD 10/31/2018 03:26 P
[2018-10-31 15:36] LABS: ALBUMIN 1.5 GM/DL (3.2-5.2); ALT/SGPT 10 U/L (12-78); BILIRUBIN,TOTAL 0.4 MG/DL (0.2-1.0); BLOOD UREA NITROGEN 20 MG/DL (7-18); CALCIUM LEVEL 7.2 MG/DL (8.5-10.1); CARBON DIOXIDE LEVEL 24 MEQ/L (21-32); CHLORIDE LEVEL 102 MEQ/L (98-107); GLOMERULAR FILTRATION RATE > 60.0 (>58); GLUCOSE, FASTING 110 MG/DL (70-100); POTASSIUM SERUM 3.7 MEQ/L (3.5-5.1); SODIUM LEVEL 134 MEQ/L (136-145); TROPONIN I 0.05 NG/ML (< 0.10)
[2018-10-31] MEDS: LEVALBUTEROL 1.25 MG/0.5 ML CONCENTRATE NEB NEB SCH ×2 (15:36→21:02)
[2018-10-31 15:43] LABS: ABG BASE EXCESS -2.7 (-2.0-2.0); ABG HCO3 19.8 MEQ/L (22.0-26.0); ABG O2 SATURATION 98.3 % (95.0-99.0); ABG PARTIAL PRESSURE CO2 28.1 mmHg (35.0-45.0); ABG PARTIAL PRESSURE O2 109.6 mmHg (75.0-100.0); ABG STANDARD HCO3 22.2 MEQ/L (22.0-26.0); ABG TOTAL CO2 20.6 MEQ/L (22.0-29.0); ABG pH (ARTERIAL) 7.465 UNITS (7.350-7.450)
[2018-10-31] MEDS: VANCOMYCIN HCL 1,000 MG, VIAL MATE ADAPTER 1 EACH in D5W 250 ML IV SCH (16:42)
--- NOTE | 2018-10-31 17:30 | IPNPDOC ---
Date Seen The patient was seen on 10/31/18. Progress Note SUBJECTIVE: Patient is a 48-year-old female with a pertinent past medical history of alcohol abuse, tobacco abuse who presented to [facility] with worsening shortness of breath for the last 1 month and 15 pound weight loss. The patient was seen in the ICU this morning. She states for the last 5 months she's been experiencing shortness of breath but in the last 1 month she has noticed the shortness of breath has gotten worsen. She has avoided going to the doctor for she does not have insurance. She is also noticed a 15 pound weight loss that she contributes to decreased appetite and because of the shortness of breath. She does admit to having a [id number] in the past but in the last 3 weeks she has smoked only one half packs every 4 days. She also admits to drinking a bottle of tequila daily but her last drink was 2-3 weeks ago for she does not have any appetite. She does admit to having some palpitations the last 3 weeks as well. She denies having any nausea vomiting diarrhea constipation. This admits to decreased appetite. She states that she currently feels a little bit better since being up in the ICU but the shortness of breath is still present. OBJECTIVE PHYSICAL EXAMINATION: VITAL SIGNS: Please see below. GENERAL: Pleasant 48-year-old female who is short of breath with conversation with some accessory muscle use. Alert and oriented 3 appropriate answering questions HEENT: Atraumatic normocephalic pupil round and reactive to right CARDIOVASCULAR: Irregularly irregular no audible murmurs rubs or gallops distant heart sounds RESPIRATORY: Decreased breath sounds in the right lung field with decreased percussion. Left lung field has diffuse inspiratory rhonchi ABDOMINAL: Soft nontender positive bowel sounds in all 4 quadrants EXTREMITIES: No lower extremity edema with tenderness SKIN: Multiple tattoos In various Areas of her body. No obvious skin breakdown noted LABORATORY DATA, IMAGING STUDIES, MICROBIOLOGY: Please see below. Echocardiogram: Official read pending DVT prophylaxis ordered?: Yes Lovenox ASSESSMENT AND PLAN: This is a 48-year-old female with a pertinent past medical history of alcohol abuse, tobacco abuse who presented to [facility] with worsening shortness of breath for the last 1 month and 15 pound weight loss. The patient will be managed with the following problems: PROBLEMS: ASSESSMENT AND PLAN: Acute respiratory ataxia 2/2 Pleural effusions likely 2/2 malignancy versus pneumonia versus congestive heart failure -Has a [id number] smoking history -CT imaging positive for extensive infiltrate in the mediastinum right hilum with mass effect on the right lung bronchi and large pleural effusion -Dr. Paiz consulted for this tube placement -Thoracocentesis pleural fluid cytology pending -Antibiotic coverage: Vancomycin and Zosyn -s/p 3 L IV fluids on admission -DuoNebs and Xopenex on board for SOB/wheezing Abnormal EKG -On admission EKG was A. fib with RVR rate,HR in ER 220s -s/p Lopressor 5 mg IV X1 Cardizem 20 mg IV X1 second at 300 mg po X1 -Echo pending -In the ICU, patient was having several ectopic beats with some pleural SVTs repeat chest x-ray showed central line tip might be advanced to far readjustment was made and ectopic beats improved -Continues to still some PVCs, amiodarone drip on board, metoprolol 25 mg by mouth twice a day -Cardiology consulted, will appreciate recommendations Sepsis on arrival -unsure if reactive or secondary to obstructive pneumonia - On admission Hypotensive, tachycardia, tachypnea and leukocytosis -s/p 3 L IV fluids on admission -Blood cultures 2 pending -s/p cefuroxime 1 -Currently on vancomycin we'll de-escalate antibiotics pending cultures results Malnutrition -complicates care - Albumin 1.5 -BMI 17.5 -Recent weight loss of 15 pounds in 2 months, -Likely secondary to malignancy -Regular diet, supplemented with Ensure enlive Tobacco abuse -Reduced her tobacco from a pack a day to 1-1/2 packs every 4 days as of right now no nicotine patch -If patient requests can give transdermal nicotine 21 g/24hours Alcohol abuse -Possibly contributed to her abnormal EKG underlying cardiomyopathy -last alcoholic beverage 2 weeks prior -No history of alcoholic seizures -CIWA not needed. Hypocalcemia -Low albumin - corrected calcium 8.9 Hyponatremia likely due to dehydration versus SIADH secondary to small cell carcinoma - On admission sodium 132 -Improved with IV fluids currently at 135 - we'll continue to monitor -Cytology pending Lactic academia -Improved since admission -Could be secondary to respiratory demand -Will continue to monitor DVT prophylaxis -Low molecular weight heparin is preferred if this is underlying malignancy continue Lovenox 40 mg daily VS, I&O, 24H, Amparo Vital Signs/I&O Vital Signs Date Time Temp Pulse Resp B/P (MAP) Pulse Ox O2 Delivery O2 Flow Rate FiO2 10/31/18 16:00 50 10/31/18 16:00 105/76 10/31/18 16:00 98.4 90 26 94 10/31/18 08:00 6.0 10/31/18 02:06 Non-Rebreather I&O- Last 24 Hours up to 6 AM 10/31/18 06:00 Intake Total 3320 ml Output Total 125 ml Balance 3195 ml Laboratory Data 24H LABS Laboratory Tests 2 10/30/18 22:44: Immature Granulocyte % (Auto) 1.1, White Blood Count 18.6H, Red Blood Count 5.18, Hemoglobin 16.0H, Hematocrit 47.0, Mean Corpuscular Volume 90.7, Mean Corpuscular Hemoglobin 30.9, Mean Corpuscular Hemoglobin Concent 34.0, Red Cell Distribution Width 13.2, Platelet Count 291, Neutrophils (%) (Auto) 80.2H, Lymphocytes (%) (Auto) 10.6L, Monocytes (%) (Auto) 4.9, Eosinophils (%) (Auto) 2 .6, Basophils (%) (Auto) 0.6, Neutrophils # (Auto) 14.9H, Lymphocytes # (Auto) 2.0, Monocytes # (Auto) 0.9H, Eosinophils # (Auto) 0.5, Basophils # (Auto) 0.1, Nucleated Red Blood Cells % (auto) 0.0, Anion Gap 16, Glomerular Filtration Rate > 60.0, Blood Urea Nitrogen 19H, Creatinine 0.98, Sodium Level 132L, Potassium Level 4.5, Chloride Level 95L, Carbon Dioxide Level 21, Calcium Level 9.3, Total Creatine Kinase 38, Creatine Kinase MB < 1.0, Creatine Kinase MB Relative Index 2.63, Troponin I 0.02, EF-Ivr-F-Type Natriuretic Peptide 40610E, Thyroid Stimulating Hormone (TSH) 5.390H, Free Thyroxine Index 3.9, Thyroxine (T4) 12.2H, Triiodothyronine (T3) Uptake 32 10/31/18 02:28: Lactic Acid Level 3.0*H 10/31/18 06:26: Nucleated Red Blood Cells % (auto) 0.0, Anion Gap 8, Glomerular Filtration Rate > 60.0, Calcium Level 7.0#L, Total Creatine Kinase 21L, Creatine Kinase MB < 1.0, Creatine Kinase MB Relative Index 4.76H, Troponin I 0.02, Aspartate Amino Transf (AST/SGOT) 16, Alanine Aminotransferase (ALT/SGPT) 9L, Alkaline Phosphatase 38L, Total Bilirubin 0.4, Direct Bilirubin 0.2, Total Protein 5.1L, Albumin 1.6L, Albumin/Globulin Ratio 0.46L 10/31/18 06:31: Lactic Acid Followup at 4 Hours 2.3*H 10/31/18 10:04: Magnesium Level 2.3, Lactate Dehydrogenase 252H 10/31/18 10:21: Lactic Acid Level 2.1*H 10/31/18 11:54: Total Creatine Kinase 25L, Creatine Kinase MB < 1.0, Creatine Kinase MB Relative Index 4.00, Troponin I 0.03# 10/31/18 11:55: Body Fluid pH 7.598, Body Fluid pH Source PLEURAL, Body Fluid WBC (Auto) 4170H, Body Fluid RBC (Auto) 33, Body Fluid Mononuclear Cells % Auto 75.1H, Fluid Polymorphonuclear Cell % Auto 24.9H, Body Fluid Glucose Source PLEURAL, Body Fluid Glucose 72, Body Fluid Protein Source PLEURAL, Body Fluid Total Protein 3.6, Body Fluid Albumin Source PLEURAL, Body Fluid Albumin 1.6, Body Fluid LDH Source PLEURAL, Body Fluid Lactate Dehydrogenase 1225, Body Fluid Amylase Source PLEURAL, Body Fluid Amylase 33, Body Fluid Cholesterol 64, Body Fluid Cholesterol Source PLEURAL, Body Fluid Triglyceride Source PLEURAL, Body Fluid Triglycerides 26, Pleural Fluid Source PLEURAL, Pleural Fluid Color ALYSON, Pleural Fluid Appearance HAZY 10/31/18 14:48: Nucleated Red Blood Cells % (auto) 0.0, Anion Gap 8, Glomerular Filtration Rate > 60.0, Lactic Acid Level 2.3*H, Blood Urea Nitrogen 20H, Creatinine 0.80, Sodium Level 134L, Potassium Level 3.7, Chloride Level 102, Carbon Dioxide Level 24, Calcium Level 7.2L, Aspartate Amino Transf (AST/SGOT) 19, Alanine Aminotransferase (ALT/SGPT) 10L, Alkaline Phosphatase 37L, Total Bilirubin 0.4, Total Protein 5.0L, Albumin 1.5L, Troponin I 0.05#, Albumin/Globulin Ratio 0.43L 10/31/18 15:32: Blood Gas Bicarbonate Standard 22.2, Arterial Blood pH 7.465H, Arterial Blood Partial Pressure CO2 28.1L, Arterial Blood Partial Pressure O2 109.6H, Arterial Blood Total CO2 20.6L, Arterial Blood HCO3 19.8L, Arterial Blood Base Excess - 2.7L, Arterial Blood Oxygen Saturation 98.3 CBC/BMP Laboratory Tests 10/30/18 22:44 Red Blood Count 5.18, Mean Corpuscular Volume 90.7, Mean Corpuscular Hemoglobin 30.9, Mean Corpuscular Hemoglobin Concent 34.0, Red Cell Distribution Width 13.2, Neutrophils (%) (Auto) 80.2 H, Lymphocytes (%) (Auto) 10.6 L, Monocytes (%) (Auto) 4.9, Eosinophils (%) (Auto) 2.6, Basophils (%) (Auto) 0.6, Ne utrophils # (Auto) 14.9 H, Lymphocytes # (Auto) 2.0, Monocytes # (Auto) 0.9 H, Eosinophils # (Auto) 0.5, Basophils # (Auto) 0.1, Calcium Level 9.3, Total Creatine Kinase 38 10/31/18 06:26 Red Blood Count 3.79 L, Mean Corpuscular Volume 90.8, Mean Corpuscular Hemoglobin 30.3, Mean Corpuscular Hemoglobin Concent 33.4, Red Cell Distribution Width 13.5 10/31/18 14:48 Red Blood Count 3.83 L, Mean Corpuscular Volume 90.9, Mean Corpuscular Hemoglobin 30.5, Mean Corpuscular Hemoglobin Concent 33.6, Red Cell Distribution Width 13.6, Calcium Level 7.2 L, Aspartate Amino Transf (AST/SGOT) 19, Alanine Aminotransferase (ALT/SGPT) 10 L, Alkaline Phosphatase 37 L, Total Bilirubin 0.4, Total Protein 5.0 L, Albumin 1.5 L Microbiology Microbiology 10/31/18 Blood Culture, Received Pending 10/31/18 Blood Culture, Received Pending 10/31/18 Acid Fast Stain, Received Pending 10/31/18 Mycobacterial Culture, Received Pending 10/31/18 Fungal Smear, Received Pending 10/31/18 Fungal Culture, Received Pending 10/31/18 Gram Stain - Final, Resulted 10/31/18 Anaerobic Culture, Resulted Pending 10/31/18 Body Fluid Culture, Received Pending ESTELA WASHINGTON DO Oct 31, 2018 17:30
[2018-10-31] MEDS: KETOROLAC 30 MG/ML VIAL (J1885) IV SCH ×2 (17:44→23:56)
[2018-10-31] MEDS: AMIODARONE HCL 360 MG in APPROPRIATE DILUENT 1 EA IV SCH (17:44)
[2018-10-31] MEDS ORDERED: MULTIVITAMIN -ADULT INJECTION 10 ML, THIAMINE INJection 100 MG, FOLIC ACID 1 MG in NS 1... IV ONE ×8 (18:00)
[2018-10-31] MEDS ORDERED: VASOPRESSIN INJ 20 UNITS in NS 499 ML IV STA (18:36)
[2018-10-31] MEDS ORDERED: THIAMINE 100 MG TAB PO ONE (19:00)
[2018-10-31] MEDS ORDERED: FOLIC ACID 1 MG TAB PO ONE (19:00)
[2018-10-31] MEDS ORDERED: MULTIVITAMINS/MINERALS THERAP 1 TAB PO ONE (19:00)
[2018-10-31] MEDS: VASOPRESSIN INJ 20 UNITS in NS 499 ML IV SCH (19:38)
[2018-10-31] MEDS: DOCUSATE SODIUM 100 MG CAP PO SCH (20:50)
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
[2018-10-31] MEDS ORDERED: DIGOXIN 0.25 MG TAB PO STA (21:40)
[2018-10-31] MEDS ORDERED: DOBUTamine HCL 500,000 MCG in APPROPRIATE DILUENT 1 EA IV SCH ×2 (21:45→23:00)
[2018-10-31] MEDS ORDERED: DIGOXIN INJ 0.5 MG/2 ML AMP (J1160) IV ONE (22:00)
[2018-10-31] MEDS ORDERED: DIGOXIN INJ 0.5 MG/2 ML AMP (J1160) IV STA (22:53)
[2018-11-01] VITALS (44 sets, daily range): BP systolic 80–129; BP diastolic 50–82; O2SAT 97–98
[2018-11-01] MEDS: LEVALBUTEROL 1.25 MG/0.5 ML CONCENTRATE NEB NEB SCH ×4 (00:40→20:31)
[2018-11-01] MEDS: VANCOMYCIN HCL 1,000 MG, VIAL MATE ADAPTER 1 EACH in D5W 250 ML IV SCH ×2 (04:11→16:46)
[2018-11-01] MEDS: VASOPRESSIN INJ 20 UNITS in NS 499 ML IV SCH (04:12)
[2018-11-01 04:42] LABS: HEMATOCRIT 30.6 % (36.0-47.0); HEMOGLOBIN 10.2 g/dl (12.0-15.5); MEAN CORPUSCULAR HEMOGLOBIN 30.3 pg (27.0-33.0); MEAN CORPUSCULAR HGB CONC 33.3 g/dl (32.0-36.5); MEAN CORPUSCULAR VOLUME 90.8 fl (80.0-96.0); PLATELET COUNT, AUTOMATED 182 10^3/uL (150-450); RED BLOOD COUNT 3.37 10^6/uL (4.00-5.40); WHITE BLOOD COUNT 12.9 10^3/uL (4.0-10.0)
[2018-11-01 05:08] LABS: BLOOD UREA NITROGEN 20 MG/DL (7-18); CALCIUM LEVEL 6.8 MG/DL (8.5-10.1); CARBON DIOXIDE LEVEL 24 MEQ/L (21-32); CHLORIDE LEVEL 100 MEQ/L (98-107); CREATININE FOR GFR 0.63 MG/DL (0.55-1.30); GLOMERULAR FILTRATION RATE > 60.0 (>58); GLUCOSE, FASTING 178 MG/DL (70-100); POTASSIUM SERUM 3.3 MEQ/L (3.5-5.1); SODIUM LEVEL 134 MEQ/L (136-145)
[2018-11-01] MEDS: KETOROLAC 30 MG/ML VIAL (J1885) IV SCH ×4 (05:18→23:38)
[2018-11-01] MEDS: AMIODARONE HCL 360 MG in APPROPRIATE DILUENT 1 EA IV SCH (05:20)
[2018-11-01] MEDS: PIPERACILLIN/TAZOBACTAM SOD 4.5 GM in D5W MINI-BAG PLUS 50 ML IV SCH ×4 (05:26→23:39)
--- NOTE | 2018-11-01 06:13 | ECHO ---
DATE OF PROCEDURE: 10/31/2018 REFERRING PHYSICIAN: Dr. Baxter INDICATION: Cardiac dysrhythmia. HEIGHT: 178 cm WEIGHT: 52 kg DIMENSIONS: IVS: 0.8 LV: 4.6 LVPW: 1.7 LA: 2.8 Aorta: 2.8 RVC: 1. Mitral E velocity: 44 A-wave: 30 E prime septal: 10 E prime lateral: 4.7 FINDINGS: The study is of acceptable technical quality even though apical and subcostal views are only fair. Left ventricle is normal size. Ventricular septum is dyskinetic. Remaining left ventricular segments are globally severely hypokinetic with overall estimated left ventricular ejection fraction (LVEF) around 20%. It appears that the apical segments are more severely affected than the basal segment of the left ventricle. The right ventricle is also normal size and is severely hypokinetic. Both atria appear grossly normal. Aortic, mitral, tricuspid, and pulmonic valves all appear normal. There is trivial pericardial effusion. Inferior vena cava is on upper limits of normal size and has reduced compressibility with respiration indicative of likely at least mildly elevated central venous pressure. Aortic root is normal. Aortic arch was poorly visualized. Abdominal aorta appears normal. Doppler interrogation reveals no aortic stenosis or insufficiency. There is trace mitral insufficiency and at least moderate tricuspid insufficiency. Calculated pulmonary artery pressure is in 30s corresponding to mild pulmonary hypertension. Pulmonic valve exhibits trace insufficiency. Mitral inflow pattern and tissue Doppler imaging of mitral annulus reveal grade 2 diastolic dysfunction indicative of elevated left ventricular filling pressure. COMMENTS: Subacute bacterial endocarditis (SBE) prophylaxis is not recommended. The study is consistent with cardiomyopathy, but the type is uncertain. MTDD
[2018-11-01] MEDS ORDERED: POTASSIUM CHLORIDE 10 MEQ SR TABLET PO ONE ×3 (06:45→23:15)
[2018-11-01 07:31] LABS: MAGNESIUM LEVEL 2.1 MG/DL (1.8-2.4); PHOSPHORUS LEVEL 2.7 MG/DL (2.5-4.9)
[2018-11-01] MEDS ORDERED: FUROSEMIDE 100 MG/10 ML VIAL (J1940) As Ordered ONE (08:01)
[2018-11-01] MEDS: DOCUSATE SODIUM 100 MG CAP PO SCH ×2 (08:05→19:50)
[2018-11-01] MEDS: MOM 30ML SUSPENSION UDC PO SCH (08:05)
[2018-11-01] MEDS: ENOXAPARIN 40 MG/0.4 ML SYRINGE (J1650) SC SCH (08:06)
[2018-11-01] MEDS ORDERED: FUROSEMIDE 100 MG/10 ML VIAL (J1940) IV ONE (08:15)
--- NOTE | 2018-11-01 08:50 | REP ---
Clinical: Chest tube. Comparison: 10/31/2018. Findings: Right chest tube is again identified in seemingly stable position. Diffuse bilateral opacities are unchanged. Small right hydropneumothorax unchanged. Impression: No change from prior examination. Continued small right hydropneumothorax and diffuse bilateral infiltrates. Electronically Signed by Khadar Padilla MD 11/01/2018 08:42 A
[2018-11-01] MEDS: PANTOPRAZOLE 40MG TAB (PROTONIX) PO SCH ×2 (09:00→09:49)
[2018-11-01] MEDS ORDERED: CALCIUM GLUCONATE 1,000 MG in D5W MINI-BAG PLUS 100 ML IV ONE (10:00)
[2018-11-01] MEDS ORDERED: KCL 20MEQ IN 100ML SWI (KRUN) 20 MEQ in APPROPRIATE DILUENT 1 EA IV ONE ×2 (10:30)
[2018-11-01 11:05] LABS: ABG BASE EXCESS -0.2 (-2.0-2.0); ABG HCO3 21.4 MEQ/L (22.0-26.0); ABG O2 SATURATION 96.1 % (95.0-99.0); ABG PARTIAL PRESSURE CO2 26.3 mmHg (35.0-45.0); ABG PARTIAL PRESSURE O2 75.9 mmHg (75.0-100.0); ABG STANDARD HCO3 24.3 MEQ/L (22.0-26.0); ABG TOTAL CO2 22.2 MEQ/L (22.0-29.0); ABG pH (ARTERIAL) 7.528 UNITS (7.350-7.450)
[2018-11-01] MEDS: PANTOPRAZOLE 40MG INJ (PROTONIX) (C9113) IV SCH (11:08)
--- NOTE | 2018-11-01 11:11 | RO ---
DATE OF PROCEDURE: 10/31/2018 PREOPERATIVE DIAGNOSIS: POSTOPERATIVE DIAGNOSIS: PROCEDURE: Right intrajugular central line adjustment procedure note. PROCEDURE EQUIPMENT MAINTENANCE SUPERINTENDENT: Dr. Lisa Green ATTENDING PHYSICIAN: Dr. Marisol Oh INDICATION: Cardiac ectopies. PROCEDURE SUMMARY: First handwashing prior to starting the sterile technique was done. My hands were washed immediately prior to the procedure. I wore a surgical cap, mask with protective eyewear, full gown, and sterile gloves throughout the procedure. The patient was placed in supine position. Neck region was prepped with chlorhexidine scrub and draped in a sterile fashion using a full drape. Anesthesia was achieved over the vein using 1% lidocaine. The old sutures were cut. The old catheter clamped and the catheter clamp fastener were removed. The line was pulled back 3 cm and a new catheter clamp fastener and catheter clamp were placed and were sutured in place. A sterile SorbaView shield was placed over the catheter at the insertion point. The patient tolerated the procedure without any hemodynamic compromise. Post procedure chest x-ray was reviewed at the end, and the tip of the catheter was in satisfactory position. Estimated blood loss is zero. My faculty preceptor for this patient encounter was physically present during the encounter and was fully available. All aspects of the patient interview, examination, medical decision making process, and medical care plan development were reviewed and approved by the faculty preceptor. The faculty preceptor is aware and concurs with the plan as stated in the body of this note and will attest to such by his/her co-signature. FRED
[2018-11-01] MEDS ORDERED: DIGOXIN INJ 0.5 MG/2 ML AMP (J1160) IV ONE ×2 (11:15→23:15)
--- NOTE | 2018-11-01 11:20 | IPN ---
DATE: 11/01/2018 Mrs. Sullivan continues to be critically ill. Overnight, she was continued on amiodarone drip and she got additional iv doses. There were also changes made in her pressors. Currently, she is on combination vasopressor and low-dose dobutamine and is maintaining reasonably good blood pressure. Unfortunately, her respiratory status has deteriorated and chest x-ray is indicative of progressive bilateral infiltrates with differential either pulmonary edema versus acute respiratory distress syndrome (ARDS). Dr. Oh gave her 60 mg of Lasix IV this morning and put her on bilevel positive airway pressure (BiPAP). So far there seemed to be favorable diuretic response without dropping blood pressure, which is slightly encouraging. At bedside, the patient denies any chest discomfort. She does not really think that there has been much improvement in her respiration, but she is nowhere as tachypneic as she was prior to these interventions. Vital signs: Blood pressure 99/69. Heart rate has been between 110-150, atrial fibrillation. Saturation is 89% on 35% FiO2. She is alert and oriented. Her jugular venous pulse (JVP) does not look elevated by physical exam. Lungs reveal faint inspiratory crackles throughout both lung parnell, but seems to have reasonable good air movement. I do not appreciate any wheezes. Heart exam reveals muffled heart sounds, irregular tachycardia. I do not appreciate any murmur. Abdomen is soft, nontender. Extremities are free of edema. Neurologically, there is generalized weakness but no focal signs. Her thought is certainly intact. Laboratory saldaña: Basic metabolic panel: Sodium 134, potassium 3.3, BUN 20, creatinine 0.6, glucose 178, magnesium 2.1. CBC: WBC count 12.9, hemoglobin 10.2, hematocrit 30.6, and platelet count 182,000. Chest x-ray reveals worsening bilateral interstitial infiltrates consistent with most likely pulmonary edema. ASSESSMENT AND PLAN: Ms. Sullivan is a 48-year-old female, who has several issues. The dominant right now appears to be congestive heart failure due to underlying cardiomyopathy, which I presume is most likely alcohol induced. She has severe left ventricular and right ventricular systolic dysfunction. She was severely hypotensive yesterday and had to be on pressors, but today will try to taper down the administration of pressors, most importantly the vasopressin. I will be hoping that she will tolerate this and will continue her on dobutamine only and will try to accomplish some additional diuresis. The second issue is atrial fibrillation. She has been on amiodarone and received total 0.5 mg digoxin in spite of which she remains quite tachycardic. The immediate plan is to continue amiodarone and I will give her another 0.25 mg of digoxin in an attempt to accomplish slightly better rate control. She has not been fully anticoagulated as yet. She still has a chest tube in and I am not convinced that the benefit outweighs the risks, but if she continues to be in atrial fibrillation will have to address this issue within the next few days. The remaining issue is most importantly the mass on a CT of the chest. The fluid analysis from the chest tube is pending. It is likely that she has underlying malignancy. That unfortunately further effects our management. Her condition remains critical and prognosis is certainly poor. We will continue full support. FRED
[2018-11-01] MEDS ORDERED: SLF 3 ML SYR IV PRN (11:30)
--- NOTE | 2018-11-01 12:49 | ECGEPIP ---
Stationary ECG Study [facility] Test Date: 2018-11-01 Pat Name: SHELIA FRANK Department: Room: [place] [address] Gender: F [employer] Analyst: WILDER : 1970 Requested By: Bhavna Chauhan Order Number: [id number] Reading MD: Layla Leos Measurements Intervals [place] Rate: 113 P: CO: 0 QRS: 130 QRSD: 109 T: 254 QT: 316 QTc: 435 Interpretive Statements ATRIAL FIBRILLATION WITH RAPID VENTRICULAR OVENTRICULAR PREMATURE COMPLEXES PAC ON PRIOR MARKED RIGHT AXIS DEVIATION RPHB INCOMPLETE RIGHT BUNDLE BRANCH BLOCK LOW VOLTAGE LIMB LEADS AFIB NEW PVC NEW OLD Anteroseptal infarct IMPROVEMENT IN DIFFUSE ST T WAVE ABN FROM 10/31/18 IMPROVED BUT STILL ABNORMAL Electronically Signed On 11-01-2018 12:49:12 EDT by Layla Leos
--- NOTE | 2018-11-01 13:06 | IPNPDOC ---
Date Seen The patient was seen on 11/01/18. Progress Note SUBJECTIVE: Patient . She also complains of feeling fatigued and generally tired she is otherwise awake alert oriented 3 OBJECTIVE PHYSICAL EXAMINATION: VITAL SIGNS: Please see below. GENERAL:. Middle-aged female sleeping sitting up in bed wearing BiPAP she does not appear to be in any acute distress at the present time she is mildly tachypnic HEENT: Moist mucous membranes she does appear pale cranial nerves appear grossly intact CARDIOVASCULAR: S1-S2 tachycardic. RESPIRATORY: Clear anteriorly diminished sounds at the bases bilaterally. Chest tube draining serosanguineous fluid ABDOMINAL: Bowel sounds present abdomen soft EXTREMITIES: No clubbing cyanosis or edema LABORATORY DATA, IMAGING STUDIES, MICROBIOLOGY: Please see below. Echocardiogram: The study is of acceptable technical quality even though apical and subcostal views are only fair. Left ventricle is normal size. Ventricular septum is dyskinetic. Remaining left ventricular segments are globally severely hypokinetic with overall estimated left ventricular ejection fraction (LVEF) of around 20%. It appears that the apical segments are more severely affected than the basal segment of the left ventricle. The right ventricle is also normal size and is severely hypokinetic. Both atria appear grossly normal. Aortic, mitral, tricuspid, and pulmonic valves all appear normal. There is trivial pericardial effusion. Inferior vena cava is on upper limits of normal size and has reduced compressibility with respiration indicative of likely at least mildly elevated central venous pressure. Aortic root is normal. Aortic arch was poorly visualized. Abdominal aorta appears normal. Doppler interrogation reveals no aortic stenosis or insufficiency. There is trace mitral insufficiency and at least moderate tricuspid insufficiency. Calculated pulmonary artery pressure is in 30s corresponding to mild pulmonary hypertension. Pulmonic valve exhibits trace insufficiency. Mitral inflow pattern and tissue Doppler imaging of mitral annulus reveal grade 2 diastolic dysfunction indicative of elevated left ventricular filling pressure. DVT prophylaxis ordered?: Lovenox ASSESSMENT AND PLAN: This is a 48-year-old female with refractory shock. PROBLEMS: 1. Refractory shock: Possibly sepsis versus cardiogenic. The patient presented tachycardic hypotensive with significant leukocytosis and elevated lactic acid with radiographic findings concerning for possible obstructive pneumonia for the time being she is continued on vancomycin and Zosyn for now will continue follow-up with cultures which are thus far negative I will check a MRSA screen however my suspicion for septic etiologies lower given her lack of improvement at this time point Possible cardiogenic shock initially she was on Levothroid at this time she is been transitioned to dobutamine she has had improvement in her ectopy with amiodarone boluses he will continue to optimize her electrolytes she does appear to have severe systolic congestive heart failure given her history is likely nonischemic in etiology. Cardiology and pulmonary assistance is greatly appreciated. We have initiated diuresis as well as BiPAP in order to help ventilate the patient to mobilize fluid with pressure likely secondary to long- standing alcohol abuse will attempt to wean vasopressin. I'm optimistic that with diuresis and optimization of her volume status her heart rate and blood pressure will improve as will her respiratory status.. Lactic acidosis resolved 2. Arrhythmia: Patient has been in atrial fibrillation he received amiodarone boluses to chocks and she did receive some intermittent beta devorah early in her course. She is not yet rate controlled some of this is likely compensatory may improve with diuresis and optimization of her cardiac status as well as electrolytes. She did have significant ectopy yesterday as well she is having less of this at this time despite dobutamine which is reason for optimism I suspect. Her chads score is quite low I see no reason to batista for anticoagulation at this time we'll focus on her hemodynamic stabilization. TSH mildly elevated likely related to her acute medical illness. 3. Hypoxic respiratory failure: As outlined above the patient is on BiPAP likely secondary to pulmonary edema related to decompensated severe systolic congestive heart failure which is a new diagnosis 4. Pleural effusion: Thoracic surgery. Appreciated at this time appears of she is in pulmonary edema however at times presentation she developed significant pleural effusion which appears to be likely malignant nature follow-up for cytology and treat accordingly rapid onset is suspicious for small cell. Sugars cytology not provided diagnosis she may require bronchoscopy for tissue retri eval 5. Anemia: I suspect likely nutritional deficiency related to her excessive alcohol intake we'll send anemia workup. 6. Alcohol abuse: She was started on thiamine and folic acid and a multivitamin she does not appear to be exhibiting any signs or symptoms of withdrawal does have some tachycardia likely related to cardiogenic shock. DISPOSITION: Prognosis is guarded. VS, I&O, 24H, Fishbone Vital Signs/I&O Vital Signs Date Time Temp Pulse Resp B/P (MAP) Pulse Ox O2 Delivery O2 Flow Rate FiO2 11/01/18 12:00 98.9 126 47 89/53 (65) 94 35 4/7/19 00:40 Venturi Mask 15.0 I&O- Last 24 Hours up to 6 AM 11/01/18 06:00 Intake Total 1831.0 ml Output Total 3096 ml Balance -1265.0 ml Laboratory Data 24H LABS Laboratory Tests 2 10/31/18 14:48: Nucleated Red Blood Cells % (auto) 0.0, Anion Gap 8, Glomerular Filtration Rate > 60.0, Lactic Acid Level 2.3*H, Blood Urea Nitrogen 20H, Creatinine 0.80, Sodium Level 134L, Potassium Level 3.7, Chloride Level 102, Carbon Dioxide Level 24, Calcium Level 7.2L, Aspartate Amino Transf (AST/SGOT) 19, Alanine Aminotransferase (ALT/SGPT) 10L, Alkaline Phosphatase 37L, Total Bilirubin 0.4, Total Protein 5.0L, Albumin 1.5L, Troponin I 0.05#, Albumin/Globulin Ratio 0.43L 10/31/18 15:32: Blood Gas Bicarbonate Standard 22.2, Arterial Blood pH 7.465H, Arterial Blood Partial Pressure CO2 28.1L, Arterial Blood Partial Pressure O2 109.6H, Arterial Blood Total CO2 20.6L, Arterial Blood HCO3 19.8L, Arterial Blood Base Excess - 2.7L, Arterial Blood Oxygen Saturation 98.3 10/31/18 19:50: Lactic Acid Followup at 4 Hours 2.0 11/01/18 04:31: Nucleated Red Blood Cells % (auto) 0.0, Anion Gap 10, Glomerular Filtration Rate > 60.0, Blood Urea Nitrogen 20H, Creatinine 0.63, Sodium Level 134L, Potassium Level 3.3L, Chloride Level 100, Carbon Dioxide Level 24, Calcium Level 6.8L, Phosphorus Level 2.7, Magnesium Level 2.1 11/01/18 07:26: Whole Blood Ionized Calcium 4.1L 11/01/18 10:55: Blood Gas Bicarbonate Standard 24.3, Arterial Blood pH 7.528H, Arterial Blood Partial Pressure CO2 26.3L, Arterial Blood Partial Pressure O2 75.9, Arterial Blood Total CO2 22.2, Arterial Blood HCO3 21.4L, Arterial Blood Base Excess - 0.2, Arterial Blood Oxygen Saturation 96.1 CBC/BMP Laboratory Tests 10/31/18 14:48 Red Blood Count 3.83 L, Mean Corpuscular Volume 90.9, Mean Corpuscular Hemoglob in 30.5, Mean Corpuscular Hemoglobin Concent 33.6, Red Cell Distribution Width 13.6, Calcium Level 7.2 L, Aspartate Amino Transf (AST/SGOT) 19, Alanine Aminotransferase (ALT/SGPT) 10 L, Alkaline Phosphatase 37 L, Total Bilirubin 0.4, Total Protein 5.0 L, Albumin 1.5 L 11/01/18 04:31 Red Blood Count 3.37 L, Mean Corpuscular Volume 90.8, Mean Corpuscular Hemoglobin 30.3, Mean Corpuscular Hemoglobin Concent 33.3, Red Cell Distribution Width 13.5, Calcium Level 6.8 L Microbiology Microbiology 10/31/18 Blood Culture - Preliminary, Resulted No growth after 24 hours . All specim... 10/31/18 Blood Culture - Preliminary, Resulted No growth after 24 hours . All specim... 10/31/18 Acid Fast Stain, Received Pending 10/31/18 Mycobacterial Culture, Received Pending 10/31/18 Fungal Smear, Received Pending 10/31/18 Fungal Culture, Received Pending 10/31/18 Gram Stain - Final, Resulted 10/31/18 Anaerobic Culture, Resulted Pending 10/31/18 Body Fluid Culture, Received Pending ROSAMARIA DALEY MD Nov 01, 2018 13:05
[2018-11-01] MEDS ORDERED: AMIODARONE HCL 150 MG in APPROPRIATE DILUENT 1 EA IV STA (13:51)
[2018-11-01] MEDS: SODIUM CHLORIDE 0.9% INJ 10 ML SYR IV SCH ×2 (14:00→21:15)
[2018-11-01] MEDS ORDERED: SLF 3 ML SYR IV SCH (14:00)
--- NOTE | 2018-11-01 14:21 | CCN ---
DATE: 11/01/2018 The patient was seen and examined this morning during bedside rounds. Yesterday evening the patient was noted to be hypotensive, was initially started on Levophed, however, had become more tachycardic and was in atrial fibrillation with rapid ventricular response. She was started on vasopressin to attempt to wean off of the Levophed. The patient was weaned off of Levophed, but continued to be in rapid ventricular response. She was therefore also given IV digoxin. She had previously been started on amiodarone and she received a loading dose, however, with the persistent ventricular response she was given a further IV loading dose of amiodarone overnight in addition to the digoxin. The patient was still hypotensive on the vasopressin and was therefore also started on dobutamine for ionotropic support in addition to the vasopressor support. She was able to be maintained overnight with these two medications, however, her heart rate has persisted in the 120-130s. This morning, patient reports that her breathing has not changed significantly. She is still tachypneic, has not had any significant coughing or mucus production. She is on a VentiMask at 50% with O2 saturations in the low 90s. She has not had any fevers or chills. She denies any abdominal pain. No nausea or vomiting. PHYSICAL EXAMINATION Temperature is 96.8, pulse 120-130s, respirations 40s, blood pressure 97/75, O2 sat 94% on 50% VentiMask. In 4.4 liters, out 2.9 liters, net positive 1.5 liters. Chest tube had approximately 200 output overnight. There is no significant air leak noted on the chest tube. General: The patient is frail-appearing, is thin, is lying in bed with some respiratory distress. Is tachypneic, unable to speak only in short sentences. She is alert and oriented and responding appropriately. HEENT: She is normocephalic, atraumatic. Has moist mucous membranes. She has a tongue piercing in place. Neck is supple. There is no palpable cervical adenopathy. There does appear to be some increased jugular venous distention. Cardiac: Irregularly irregular. Is tachycardic. Normal S1, S2. Unable to appreciate any murmurs. Lungs: Patient has increased crackles bilaterally. No significant wheezing or rhonchi. Abdomen is soft, nontender, nondistended. There is positive bowel sounds. Extremities: There is no lower extremity was noted bilaterally. LABORATORY DATA WBC 12.9, hemoglobin 10.2, platelets 182. Chemistry: Sodium is 134, potassium 3.3, chloride 100, bicarb 24, BUN 20, creatinine 0.63, glucose 178, lactic acid was 2.0. Pleural fluid studies are exudative and lymphocytic predominant. The fluid culture Gram stain shows no organisms. Chest x-ray this morning shows pulmonary vascular congestion and bilateral infiltrates which appear slightly increased. She has a right chest tube in place with a hydropneumothorax, which is unchanged. Her triple lumen catheter has been pulled back slightly so that its tip is not in the right atrium and is in the superior vena cava (SVC). ASSESSMENT/PLAN The patient is a 48-year female former smoker with no other reported medical history, however does have a history of alcohol abuse who presented with increasing shortness of breath and dyspnea as well as nonproductive cough for the past few months and some weight loss. She was found to have new-onset atrial fibrillation on admission, was in RVR and was given multiple medications in the ED, was cardioverted to sinus rhythm. However, the patient has since converted back into atrial fibrillation with a rapid ventricular response yesterday. Yesterday, she was also noted to have some episodes of nonsustained ventricular tachycardia (NSVT) when she was in sinus. Her x-ray did show that her triple lumen catheter was with the tip in the right atrium. Therefore it was withdrawn 3 cm for the tip in the SVC and after this her episodes of an NSVT resolved. With her atrial fibrillation and the rapid ventricular response her blood pressure did decrease and she was initially started on Levophed and later changed to vasopressin with weaning off of the Levophed as there was some concern that it was contributing to her tachycardia. She was hypotensive still however and as her echo showed evidence of a severely hypokinetic LV and hypokinetic RV with evidence of increased central venous pressure (CVP) and reduced compressibility of her IVC. She was started on dobutamine overnight for ionotropic support. This morning her blood pressures have been maintained on the dobutamine at 2 mcg per kg per minute and vasopressin at 0.04 units/min. CXR this morning shows some increasing bilateral patchy opacities consistent with pulmonary edema versus acute respiratory distress syndrome (ARDS). She has been net fluid positive since her admission and she does appear to have more crackles on exam and appears to be more tachypneic today. Therefore, she was given 60 mg of IV Lasix with good urine output and her blood pressure tolerated this. Will continue to monitor electrolytes and replete as needed. We will we will wean her off of the vasopressin and continue with dobutamine only for ionotropic support and continue with diuresis as tolerated. She was given additional dose of digoxin IV for loading this morning and she has completed the IV loading of amiodarone. Appreciate cardiology consult and recommendations about additional medications for rate control. Given her respiratory distress and evidence of pulmonary edema, the patient was placed on BiPap for her work of breathing. Will check an ABG and continue to monitor. Did discuss with the patient about potential need for intubation and she is agreeable if it is needed Continue her chest tube to wall suction. Her x-ray shows persistent right hydropneumothorax and there is no significant air leak in the Pleur-Evac. Continue broad-spectrum antibiotics with vancomycin and Zosyn. Would followup results of her blood and sputum cultures. Her WBC is trending down. Continue with Xopenex nebulizers. Will followup the results of her pleural fluid studies. Given the exudative and lymphocytic predominant fluid, suspect likely malignant effusion. She does have on imaging a right hilar mass with mediastinal and hilar adenopathy concerning for possible malignancy. She is not a candidate for any bronchoscopic procedures at this time Continue with vitamin, thiamine and folate given her alcohol abuse. She does not require any medications for withdrawal as she had quit drinking a few weeks prior to admission. Deep venous thrombosis (DVT) prophylaxis, on Lovenox and SCDs. FULL CODE. Total critical care time spent not including any procedures approximately 55 minutes. MTDD
[2018-11-01 15:40] LABS: BLOOD UREA NITROGEN 17 MG/DL (7-18); CALCIUM LEVEL 7.2 MG/DL (8.5-10.1); CARBON DIOXIDE LEVEL 25 MEQ/L (21-32); CHLORIDE LEVEL 100 MEQ/L (98-107); CREATININE FOR GFR 0.68 MG/DL (0.55-1.30); FERRITIN 1054 NG/ML (8-252); GLOMERULAR FILTRATION RATE > 60.0 (>58); GLUCOSE, FASTING 112 MG/DL (70-100); IRON (FE) 11 UG/DL (50-170); PERCENT SATURATION 11.3 % (13.2-45.0); POTASSIUM SERUM 3.9 MEQ/L (3.5-5.1); SODIUM LEVEL 133 MEQ/L (136-145); TOTAL IRON BINDING CAPACITY 97 UG/DL (250-450)
[2018-11-01] MEDS ORDERED: FUROSEMIDE 40 MG/4 ML VIAL (J1940) IV ONE (17:00)
[2018-11-01] MEDS: AMIODARONE HCL 150 MG in APPROPRIATE DILUENT 1 EA IV SCH ×2 (19:10→21:12)
[2018-11-01 21:37] LABS: ABG BASE EXCESS 1.6 (-2.0-2.0); ABG HCO3 23.1 MEQ/L (22.0-26.0); ABG O2 SATURATION 89.7 % (95.0-99.0); ABG PARTIAL PRESSURE CO2 27.7 mmHg (35.0-45.0); ABG PARTIAL PRESSURE O2 54.3 mmHg (75.0-100.0); ABG STANDARD HCO3 25.7 MEQ/L (22.0-26.0); ABG pH (ARTERIAL) 7.539 UNITS (7.350-7.450)
[2018-11-02] VITALS (48 sets, daily range): BP systolic 83–156; BP diastolic 42–126; O2SAT 92–100
[2018-11-02] MEDS: LEVALBUTEROL 1.25 MG/0.5 ML CONCENTRATE NEB NEB SCH ×4 (00:27→19:51)
[2018-11-02] MEDS ORDERED: ETOMIDATE INJ 20MG/10ML VIAL As Ordered ONE (01:26)
[2018-11-02] MEDS ORDERED: SUCCINYLCHOLINE INJ 200 MG/10 ML VIAL (J0330) As Ordered ONE (01:27)
[2018-11-02] MEDS ORDERED: PROPOFOL 1,000 MG/100 ML VIAL As Ordered ONE (01:40)
[2018-11-02] MEDS ORDERED: MIDAZOLAM INJ 2 MG/2 ML VIAL (J2250) As Ordered ONE (02:12)
[2018-11-02] MEDS ORDERED: fentaNYL 100 MCG/2 ML INJECTION (J3010) As Ordered ONE (02:29)
[2018-11-02] MEDS ORDERED: MIDAZOLAM INJ 2 MG/2 ML VIAL (J2250) IV ONE ×3 (02:30→03:00)
[2018-11-02] MEDS ORDERED: fentaNYL 100 MCG/2 ML INJECTION (J3010) IV ONE ×2 (02:30→03:00)
[2018-11-02] MEDS ORDERED: REFRIGERATOR IV KEYS XX PRN (02:30)
[2018-11-02] MEDS: NOREPINEPHRINE BITARTRATE 16 MG in D5W 484 ML IV SCH (02:34)
[2018-11-02] MEDS ORDERED: SUCCINYLCHOLINE INJ 200 MG/10 ML VIAL (J0330) IV ONE (03:00)
[2018-11-02] MEDS ORDERED: ETOMIDATE INJ 20MG/10ML VIAL IV ONE (03:00)
[2018-11-02] MEDS: MIDAZOLAM HCL 100 MG in D5W 80 ML IV SCH ×2 (03:04→17:21)
[2018-11-02] MEDS: fentaNYL CITRATE 1,000 MCG in NS 80 ML IV SCH ×3 (03:45→17:19)
[2018-11-02] MEDS ORDERED: AMIODARONE HCL 150 MG in APPROPRIATE DILUENT 1 EA IV STA ×3 (04:13→16:26)
[2018-11-02] MEDS: VANCOMYCIN HCL 1,000 MG, VIAL MATE ADAPTER 1 EACH in D5W 250 ML IV SCH ×2 (04:26→16:49)
[2018-11-02] MEDS: PIPERACILLIN/TAZOBACTAM SOD 4.5 GM in D5W MINI-BAG PLUS 50 ML IV SCH ×3 (05:48→19:19)
[2018-11-02] MEDS: SODIUM CHLORIDE 0.9% INJ 10 ML SYR IV SCH ×3 (05:49→21:10)
[2018-11-02 05:56] LABS: ABG BASE EXCESS 0.7 (-2.0-2.0); ABG HCO3 23.9 MEQ/L (22.0-26.0); ABG O2 SATURATION 98.1 % (95.0-99.0); ABG PARTIAL PRESSURE CO2 33.8 mmHg (35.0-45.0); ABG PARTIAL PRESSURE O2 106.7 mmHg (75.0-100.0); ABG STANDARD HCO3 25.2 MEQ/L (22.0-26.0); ABG pH (ARTERIAL) 7.468 UNITS (7.350-7.450)
--- NOTE | 2018-11-02 06:12 | RO ---
DATE OF PROCEDURE: 11/02/2018 PROCEDURE: Endotracheal intubation. INDICATION: Respiratory failure. PREPROCEDURE DIAGNOSIS: Hypoxemic respiratory failure. POSTPROCEDURE DIAGNOSIS: Hypoxemic respiratory failure. ATTENDING PHYSICIAN: Dr. Marisol Oh CONSENT: The procedure was emergent and the consent was implied due to the emergent nature of the procedure. I did discuss with the patient prior to intubation about the necessity for the procedure and she verbally agreed to the procedure. The risks and benefits were discussed with her prior to the procedure. PROCEDURE SUMMARY: A time out was performed prior to the procedure. My hands were washed immediately prior to the procedure. The patient was placed on a tafe teacher including continuous pulse oximetry. Rapid sequence intubation was conducted. The patient received 20 mg of etomidate for induction and 60 mg of succinylcholine for adequate paralysis. Using a size 3 MAC laryngoscope and a size 7.5 endotracheal tube with stylet, the patient was intubated on the first pass attempt. The stylet was removed and the balloon cuff was inflated. Appropriate endotracheal tube position was confirmed by direct visualization of vocal cord passage, fogging of the tube, CO2 metric indicator and symmetric breath sounds. The tube was secured at 22 cm at the lips. A post intubation chest x-ray is pending. [facility]
[2018-11-02 06:23] LABS: HEMATOCRIT 35.4 % (36.0-47.0); HEMOGLOBIN 12.1 g/dl (12.0-15.5); MEAN CORPUSCULAR HEMOGLOBIN 30.2 pg (27.0-33.0); MEAN CORPUSCULAR HGB CONC 34.2 g/dl (32.0-36.5); MEAN CORPUSCULAR VOLUME 88.3 fl (80.0-96.0); PLATELET COUNT, AUTOMATED 320 10^3/uL (150-450); RED BLOOD COUNT 4.01 10^6/uL (4.00-5.40); WHITE BLOOD COUNT 19.8 10^3/uL (4.0-10.0)
[2018-11-02] MEDS ORDERED: MIDAZOLAM HCL 100 MG in D5W 80 ML IV SCH (06:27)
[2018-11-02 06:51] LABS: BLOOD UREA NITROGEN 19 MG/DL (7-18); CALCIUM LEVEL 7.3 MG/DL (8.5-10.1); CARBON DIOXIDE LEVEL 24 MEQ/L (21-32); CHLORIDE LEVEL 99 MEQ/L (98-107); CREATININE FOR GFR 0.96 MG/DL (0.55-1.30); GLOMERULAR FILTRATION RATE > 60.0 (>58); GLUCOSE, FASTING 164 MG/DL (70-100); POTASSIUM SERUM 3.9 MEQ/L (3.5-5.1); SODIUM LEVEL 132 MEQ/L (136-145)
--- NOTE | 2018-11-02 07:04 | REP ---
Portable chest, 02:27 a.m., single AP upright view: Comparison is 11/01/2018. The right thoracotomy tube is unchanged. There is a right apical pneumothorax with a 1.6 cm gap. There is a right pleural effusion, unchanged. There are interstitial and alveolar infiltrates throughout the left lung and in the right parahilar zone. This is unchanged. Cardiac margins are obscured, cardiac size cannot be determined. The right IJ central venous catheter is in satisfactory location, unchanged. There is interval placement of a nasogastric tube with the tip in the abdominal left upper quadrant. There is interval placement of an endotracheal tube with the tip above the hayder at the level of the clavicular heads. Electronically Signed by Mat Amador MD 11/02/2018 06:56 A
[2018-11-02 07:09] LABS: DIGOXIN LEVEL 2.9 NG/ML (0.5-2.0); TROPONIN I 0.04 NG/ML (< 0.10)
--- NOTE | 2018-11-02 07:18 | IPN ---
DATE: 11/01/2018 Ms. Sullivan became more tachypneic and hypotensive after placement of her chest tube yesterday. This happened approximately 2 hours after the chest tube placement. Her chest x-ray showed what looked to be post expansion pulmonary edema on the right side. However, since then, she became more hypotensive and an echocardiogram was undertaken which showed her to have severe systolic dysfunction with an ejection fraction of 22%. Her chest x-ray today looks like bilateral pulmonary edema. Her vital signs show a T-max of 98.9 with a heart rate that ranges between 126 and 131 in atrial fibrillation. She did have a run of ventricular tachycardia which was resolved with pulling back the central line. Her respiratory rate is between 45 and 48 on BiPAP. She is 97% saturated on 35% FiO2 and her blood pressure is ranging between 94/53 to 108/56. Her intake and output the past 24 hours has been recorded as 4459 in and 2925 out for a positivity of 1500 mL. She put out 2400 mL from the chest tube yesterday including the initial drainage. In the past 12 hours, she has put out 325 mL and there is no air leak. On physical examination, she has bilateral crackles and bilateral wheezing during expiration. percussion notes are full to the diaphragm. Cardiac Exam: Shows an irregular rate and rhythm, tachycardia, without murmurs, clicks, gallops, or rubs. I cannot feel her PMI. S1 and S2 are normal. Abdomen: Soft. Nontender. Bowel sounds are hypoactive, but present. She is slightly distended. Extremities: Show no pretibial edema. No calf tenderness. No differential swelling of the upper extremities. Skin: Warm, dry and perfused. There is no cyanosis or mottling, including that of the nail beds and knees. Neck: Supple. There is no jugular venous distention. No subcutaneous emphysema. Trachea is midline. Mouth: Shows her mucous membranes to be pink and moist. Lips and commissures are without lesions. Eyes: Show her pupils to be equal and reactive. Extraocular movements intact. Sclerae nonicteric. Neurologic: Shows II-XII intact along with gross motor and gross sensation intact. Gait is not tested. Psychiatric shows her to be awake, alert, and able to answer questions. I cannot information security director her mood and affect other than the anxiety secondary to her shortness of breath. She was on Levophed, but remains on dobutamine and IV amiodarone for her atrial fibrillation. Her white count today is 12.9 down from 19.9 yesterday. Hemoglobin and hematocrit are 10.2 and 30.6, down from 11.6 and 34.8 yesterday. Platelet count is 182. There is no differential on her. The decrease in her hemoglobin/hematocrit (H/H) is probably secondary to hemodilution. Her blood gases today show a pH of 7.52, pCO2 of 26 and pO2 of 75 on the above FiO2. Base excess is -0.2. Her chemistries today show a marginally low potassium of 3.3 as well as a marginally low sodium of 134. Her BUN and creatinine are 20 and 0.63 respectively with a glucose of 178, a calcium of 6.8. Magnesium is 2.1 with a phosphorus of 2.7. Albumin yesterday was 1.5. Her pleural fluid has come back with a pH of 7.59 with a LDH of 1225 with a corresponding serum LDH of 252. Glucose is 72 with a total protein of 3.6. There are 4170 white cells, 75% are mononuclear, probably lymphocytes, and 24% are polymorphonuclear leukocytes (PMNs). This looks to be an exudative lymphocytic effusion and will probably quan out to be malignant. Her chest x-ray shows her lung fully expanded to the chest wall. The chest tube is in a good place. There are bilateral alveolar infiltrates consistent with pulmonary edema. The heart looks globular with an enlarged right atrium, although the film is rotated and is done portably. IMPRESSION: 1. Right upper lobe lung mass. 2. Large pleural effusion, exudative and lymphocytic. 3. Heart failure with severe systolic dysfunction of 22%. 4. Ventricular tachycardia probably secondary to central line placement. 5. Atrial fibrillation. 6. Hypoxia. 7. Lactic acidemia. 8. Probable post obstructive atelectasis. PLAN AND DISCUSSION: I will certainly keep the chest tube in for the present time. Will await cytology tomorrow. I suspect this is going to represent a large malignancy. If I were to guess it is going to represent small cell carcinoma. Cardiology and the manager continuous improvement are treating her heart failure with dobutamine. 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
--- NOTE | 2018-11-02 08:25 | IPN ---
DATE OF SERVICE: 11/02/2018 Ms. Sullivan remains critically ill. Over the night, there were ongoing problems with respiration and also was poorly controlled atrial fibrillation. Eventually, Dr. Oh intubated the patient at around 2:00 a.m. After the intubation, her blood pressure dropped after sedation was started and she had to be started again on Levophed. On a positive note, she converted to sinus rhythm in the forest resource specialist hours today and so far has been in sinus rhythm for about a couple of hours. There has not been much of ventricular ectopy. On physical examination, she is sedated and intubated. Her lungs still reveal occasional crackle and wheeze, but air movement seems to be good. Heart Exam: Regular rhythm. I still do not appreciate any gallop, rub or murmur. Abdomen is soft, nontender. Bowel sounds are positive. She is free of edema. She is on 8 of PEEP. Fluid balance yesterday was about 640 negative and she put out 3400 mL of urine. Blood pressure this morning is 88/67, but usually in the low 90s and heart rate in 80s. Saturation 97% on 40% FIO2. LABORATORY DATA: WBC count 19.8, hemoglobin 12.1, hematocrit 34, platelet count 320,000. Basic metabolic panel: Sodium 132, potassium 3.9, BUN 19, creatinine 1.0 and glucose 164. Lactic acid is 2.5. Troponin 0.04. ABG at 5:45: pH 7.5, pCO2 33, pO2 106. Saturation 98%. On chest x-ray, there is appropriate position of the endotracheal tube (ET) tube. Bilateral infiltrates do not appear to be dramatically changed. ASSESSMENT/PLAN: Ms. Sullivan is a 48-year-old female who came in after gradually progressive illness of approximately 5 months duration that started as a cough and then progressed with dyspnea. On presentation, she was in atrial fibrillation and was found to have severe left ventricular systolic dysfunction and also a mass on CT scan of the chest. There was a large pleural effusion that is exudative, but cytology at this point is pending. Unfortunately, she remains critically ill when the dominant problem is congestive heart failure. She was intubated last night. It seemed to have helped her hemodynamic status. The goal at this point would be to try two type of pressors if only possible, which may not be successful, but ultimately I am hopeful that we will be able to if anything use dobutamine again. As far as the atrial fibrillation is concerned, she is currently in sinus rhythm after she received multiple doses of IV amiodarone as well as digoxin. The digoxin level is actually 2.9 this morning after she received only 1 mg IV over the course of 2 days. She does not have any obvious signs of digoxin toxicity and consequently I do not believe that we need to give her Digibind. Will just observe her clinically. Unfortunately, unless there will be some fixable problem, I am afraid that her prognosis is very poor. As far as the cardiomyopathy is concerned, she is not a candidate for any more advanced therapies, including left ventricular assistive devices (LVAD) or cardiac transplantation on account of her alcoholism.
[2018-11-02] MEDS: CHLORHEXIDINE GLUCONATE 0.12 % 15ML UDC (PERIDEX ORAL RINSE) MT SCH ×2 (09:33→20:54)
[2018-11-02] MEDS: ENOXAPARIN 40 MG/0.4 ML SYRINGE (J1650) SC SCH (09:33)
[2018-11-02] MEDS: MOM 30ML SUSPENSION UDC PO SCH (09:33)
[2018-11-02] MEDS: PANTOPRAZOLE 40MG INJ (PROTONIX) (C9113) IV SCH (09:33)
--- NOTE | 2018-11-02 10:20 | CCN ---
DATE: 11/02/2018 Yesterday the patient had been given IV Lasix for diuresis given concern for pulmonary edema causing worsening of her respiratory status. She was given an additional 40 mg IV Lasix in the afternoon with appropriate diuresis. Despite diuresis, she continued to be significantly tachypneic as well as tachycardic. The patient was unable to tolerate BiPAP due to anxiety. In the evening she was attempted on Vapotherm, which she initially tolerated for a few hours however, after a coughing spell, the patient had nausea and was unable to place t he Vapotherm back on. She was noted still to be significantly tachypneic with respiratory rates anywhere from the 40s up to high 50s. She was also persistently tachycardic with a heart rate in the 140s and 150s. She had been given additional IV amiodarone throughout the day yesterday as well as with additional IV digoxin for a total of 1 mg of digoxin IV. Given her respiratory distress. The patient was intubated early this morning and placed on a ventilator. After she had intubation with sedation, the patient was hypotensive and was restarted on Levophed. Her dobutamine had been weaned off earlier in the evening. After intubation, the patient then spontaneously converted into sinus rhythm. She has currently been maintained in sinus rhythm. Has not had any episodes of nonsustained ventricular tachycardia (NSVT) or other ventricular ectopy. She is currently intubated and sedated is minimally responsive to painful stimuli at this time. PHYSICAL EXAMINATION: Vitals: Temperature 96.4, heart rate was 140 is now 86, respiratory rate 22, blood pressure 87/64, O2 100% on a 50% FiO2. Ins 2.7, outs 3.4, net negative 641 mL. GENERAL: Patient is intubated and sedated. Is minimally responsive to painful stimuli. HEENT: Normocephalic, atraumatic. Pupils are pinpoint. She has a tongue piercing in place. Neck is supple. Trachea is midline. There is a right internal jugular (IJ) in place. CARDIAC: Regular rate and rhythm. Normal S1, S2. No murmurs appreciated. PULMONARY: There is occasional wheezing on the right side with crackles bilaterally. ABDOMEN: Soft, nontender. Bowel sounds are positive. LOWER EXTREMITIES: There is no lower extremity edema noted bilaterally. LABS: WBC 19.8, hemoglobin 12.1, platelets 320. Chemistry: Sodium 132, potassium 3.9, chloride 99, bicarb 24, BUN 19, creatinine 0.96, glucose 164, lactic acid was 2.5. Digoxin level was 2.9. Troponins were negative. ABG after intubation, pH of 7.468, pCO2 of 33.8, pO2 of 106.7. Chest x-ray this morning showed the endotracheal (ET) tube in place. There is an orogastric (OG) tube coursing below the diaphragm. The right IJ and is in place with the tip in superior vena cava (SVC). There is a right-sided chest tube with a right hydropneumothorax which appears unchanged. There is persistent bilateral fluffy opacities noted. ASSESSMENT/PLAN: The patient is a 48-year female former smoker with a history of alcohol abuse who presented with increasing shortness of breath and dyspnea as well as nonproductive cough and weight loss to the past few months. The patient was found to have new-onset atrial fibrillation with rapid ventricular rate (RVR), which has been difficult to control as well as a new diagnosis of biventricular heart failure. Patient also with leukocytosis, hypotension and an increase lactate with the component of possible cardiogenic shock given her heart failure. She had CT chest on admission which showed evidence of possible pneumonia on the left and a possible postobstructive pneumonia on the right with right hilar mass and mediastinal and hilar adenopathy. The patient had been noting to have increasing respiratory distress and tachypnea. Her chest x-ray showed increasing bilateral patchy opacities consistent with pulmonary edema versus and acute respiratory distress syndrome (ARDS). She was given IV diuretics yesterday with some diuresis, however, she did not improve clinically. The patient also was unable to tolerate BiPAP or Vapotherm for respiratory support, and she also continue be in persistent atrial fibrillation with RVR. Therefore, the decision was made to intubate the patient early this morning for her acute hypoxemic respiratory failure and respiratory distress. Neuro: The patient is intubated and sedated. She is on Versed drip and fentanyl drip for sedation. Propofol was being held given the negative inotropic effect. Continue to titrate sedation for a Carmenza of two to three. Continue with thiamine, folate and multivitamin for history of alcohol abuse Cardiac: The patient has a history of new onset atrial fibrillation with RVR which has been difficult to rate control. 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 She has had negative cardiac enzymes, and did have significantly elevated BNP. She was given multiple doses of IV amiodarone as well as IV digoxin for rate control. She has also been hypotensive with possible septic versus cardiogenic shock. Was weaned off of dobutamine yesterday and all pressors however post intubation, the patient was hypotensive requiring Levophed for blood pressure support. Continue with Levophed and titrate for a mass above 65. Appreciate cardiology consults and recommendations. She has received a total of 1 mg IV digoxin and her due to her digoxin level was supratherapeutic at 2.9 today. Will continue to hold for the digoxin and will not give Digibind as she does not appear to have any acute toxicities at this time. The patient is also status post multiple doses of IV amiodarone. She has since spontaneously converted into sinus rhythm and appears to currently being may be maintaining in sinus Will hold further diuretics at this time. Her central venous pressure (CVP) today was low. Will continue to monitor her ins and outs. The patient's prognosis from a cardiac standpoint is unfortunately poor and she is not a candidate for any advanced therapies including left ventricular assistive device (LVAD) or cardiac transplantation due to her history of alcoholism disease. Pulmonary: The patient presented with acute hypoxemic respiratory failure as well as with possible pneumonia on CT imaging and a newly diagnosed right hilar mass and mediastinal and hilar adenopathy. She was started on broad-spectrum antibiotics for her pneumonia and she has remained afebrile, however, she does have persistent leukocytosis. The patient was noted to have increasing respiratory distress and tachypnea. Her chest x-ray showed worsening bilateral and interstitial opacities consistent with pulmonary edema versus ARDS. She did not improve yesterday with diuresis and was not tolerating BiPAP or Vapotherm and she was therefore intubated early this morning. The patient is on pressure regulated volume control (PRVC) with the current settings of 400/16 /8. Continue with daily arterial blood gases (ABGs) and chest x-rays while intubated. Continue vent bundle with head of bed elevation and chlorhexidine mouthwash. Continue with broad-spectrum antibiotics with vancomycin and Zosyn and will followup cultures and procalcitonin. Will followup Staphylococcus aureus (MRSA) screen as well. The patient also had a large right pleural effusion on admission and a smaller left pleural effusion. She had right-sided chest tube placed by cardiothoracic surgery. The fluid studies appeared exudative and lymphocytic predominant, likely a malignant effusion. Her fluid cytology is still pending. At this time, patient is not a candidate for any bronchoscopic procedures given her pressor requirement. Continue with Xopenex nebulizers. GI: The patient has an OG tube in place to low intermittent suction. Protonix was started for GI prophylaxis while intubated on Keep nothing by mouth for now. Can likely start her on trophic tube feeds tomorrow. Renal: The patient has a Ackerman in place to monitor her urine output. Will continue to monitor her renal function and continue to monitor her electrolytes and replete as needed. DVT prophylaxis. Lovenox and sequential compression stockings (SCDs). FULL CODE. Total critical care time spent not including any procedures approximately 1 hour and 20 minutes.
[2018-11-02 10:30] LABS: VITAMIN B12 LEVEL 513 PG/ML (247-911)
[2018-11-02] MEDS: IPRATROPIUM 0.5MG/ALBUTEROL 2.5MG INH SOL UD 3ML (DUONEB)(J7620) NEB PRN ×2 (11:27→16:19)
--- NOTE | 2018-11-02 12:03 | REP ---
Portable chest x-ray: Semi-erect AP view. History: Intubated patient. Comparison study: November 02, 2018. Findings: Right-sided chest tube is again noted in place. A right internal jugular central venous line terminates in the superior vena cava. Endotracheal tube is seen in good position at the level of proximal clavicles. An NG tube enters left upper quadrant of the abdomen. There is a small right-sided pneumothorax essentially unchanged from the 02:27 a.m. film on this date. There is a small quantity of right pleural fluid blunting the right lateral pleural angle. There are extensive pulmonary parenchymal infiltrates bilaterally diffuse pulmonary edema versus diffuse inflammatory disease. This is unchanged. Electronically Signed by Arpit Phillips MD 11/02/2018 11:53 A
[2018-11-02] MEDS: DOCUSATE SOD LIQ 100MG/10ML UDC GT SCH ×2 (12:58→20:54)
--- NOTE | 2018-11-02 15:43 | REP ---
PORTABLE CHEST: AP portable view of the chest is performed and compared to prior exam the same day. There is a small right apical pneumothorax which is unchanged. Right chest tube remains in place. Right central venous catheter is seen with the tip in the superior vena cava. Endotracheal tube is seen with the tip at the level of the clavicles unchanged. Nasogastric tube traverses into the stomach. Bilateral infiltrates are unchanged. Cardiomediastinal silhouette is unchanged. IMPRESSION: Stable exam. Electronically Signed by Mat Christy MD 11/02/2018 06:20 P
--- NOTE | 2018-11-02 16:30 | ECGEPIP ---
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 Low voltages with right axis, incomplete RBBB, slow precordial R-wave progression and persistent S waves V5 and V6; body habitus versus pulmonary disease. Nonspecific ST/T-wave abnormalities. Rhythm change from Atrial fibrillation 11/01/18 Electronically Signed On 11-02-2018 16:30:30 EDT by Emiliano Carpenter
[2018-11-03] VITALS (45 sets, daily range): BP systolic 68–109; BP diastolic 50–81; O2SAT 93
[2018-11-03] MEDS: PIPERACILLIN/TAZOBACTAM SOD 4.5 GM in D5W MINI-BAG PLUS 50 ML IV SCH ×3 (00:47→13:16)
[2018-11-03] MEDS: LEVALBUTEROL 1.25 MG/0.5 ML CONCENTRATE NEB NEB SCH ×3 (01:23→13:19)
[2018-11-03] MEDS: NOREPINEPHRINE BITARTRATE 16 MG in D5W 484 ML IV SCH ×2 (01:53→13:00)
[2018-11-03] MEDS: fentaNYL CITRATE 1,000 MCG in NS 80 ML IV SCH ×4 (03:30→22:08)
[2018-11-03] MEDS: VANCOMYCIN HCL 1,000 MG, VIAL MATE ADAPTER 1 EACH in D5W 250 ML IV SCH (03:46)
[2018-11-03] MEDS ORDERED: AMIODARONE HCL 150 MG in APPROPRIATE DILUENT 1 EA IV STA ×3 (04:12→08:49)
[2018-11-03] MEDS ORDERED: AMIODARONE HCL 150 MG/100 ML PREMIXED BAG (NEXTERONE) As Ordered ONE (04:15)
[2018-11-03 05:00] LABS: HEMATOCRIT 32.6 % (36.0-47.0); MEAN CORPUSCULAR HEMOGLOBIN 30.1 pg (27.0-33.0); MEAN CORPUSCULAR HGB CONC 33.7 g/dl (32.0-36.5); MEAN CORPUSCULAR VOLUME 89.1 fl (80.0-96.0); PLATELET COUNT, AUTOMATED 262 10^3/uL (150-450); RED BLOOD COUNT 3.66 10^6/uL (4.00-5.40)
[2018-11-03 05:34] LABS: ABG BASE EXCESS 0.2 (-2.0-2.0); ABG HCO3 23.4 MEQ/L (22.0-26.0); ABG PARTIAL PRESSURE CO2 33.3 mmHg (35.0-45.0); ABG PARTIAL PRESSURE O2 67.1 mmHg (75.0-100.0); ABG STANDARD HCO3 24.6 MEQ/L (22.0-26.0); ABG TOTAL CO2 24.4 MEQ/L (22.0-29.0); ABG pH (ARTERIAL) 7.465 UNITS (7.350-7.450)
[2018-11-03 05:42] LABS: BLOOD UREA NITROGEN 16 MG/DL (7-18); CALCIUM LEVEL 7.4 MG/DL (8.5-10.1); CARBON DIOXIDE LEVEL 25 MEQ/L (21-32); CHLORIDE LEVEL 98 MEQ/L (98-107); CREATININE FOR GFR 0.86 MG/DL (0.55-1.30); DIGOXIN LEVEL 1.5 NG/ML (0.5-2.0); GLOMERULAR FILTRATION RATE > 60.0 (>58); GLUCOSE, FASTING 181 MG/DL (70-100); SODIUM LEVEL 133 MEQ/L (136-145)
[2018-11-03] MEDS: SODIUM CHLORIDE 0.9% INJ 10 ML SYR IV SCH ×2 (06:00→14:00)
[2018-11-03] MEDS: POTASSIUM CHLORIDE 10% LIQ 20 MEQ/15 ML UDC PO SCH ×2 (06:25→09:00)
--- NOTE | 2018-11-03 08:00 | IPN ---
DATE OF SERVICE: 11/03/2018 Mrs. Sullivan had a rough day yesterday. She initially converted to sinus rhythm after she got multiple doses of amiodarone the previous night and stayed in sinus rhythm throughout the day, but then she relapsed, but fortunately ultimately converted again in the evening hours yesterday and stayed in sinus rhythm for most of the night until about 4:00 a.m. when she went into atrial fibrillation with rapid ventricular response (RVR) again. She did receive since two doses of amiodarone IV totaling 300 mg and at the time of my dictation she is in atrial fibrillation with a ventricular rate of about 110-120. Hemodynamically, she remained stable. She remains on Levophed, but the dose is down to 7, which is a slow decrease since yesterday. Another piece of bad news is the analysis of her pleural fluid. 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 Vital Signs: Blood pressure last documented 85/58, heart rate in 110s, respiratory rate 22 and saturation 93% on 35% FIO2 with aid of PEEP. Her fluid balance yesterday was recorded as positive about 480. Weight is down slightly to 54.3 kg. She is sedated and intubated. Her central venous pressure I do not have from this morning yet, but yesterday evening was 14. It does not look elevated by physical exam. Lungs: Reveal occasional crackles throughout, fair air movement and a slight component of wheeze. Heart exam reveals an irregularly irregular rhythm. No obvious murmur or gallop is appreciated. Abdomen: Soft. Bowel sounds are positive. There is no peripheral edema. Laboratory-saldaña, CBC today reveals WBC count 18,000, hemoglobin 11, hematocrit 32.6 and platelet count 262,000. Basic metabolic panel with sodium 133, potassium 3.0, BUN 16, creatinine 0.9, glucose 181. Lactic acid well from yesterday was 2.5 and has not been repeated. Digoxin level is down to 1.5. HIV came back negative. Pleural cytology is positive for poorly differentiated carcinoma as noted above. No chest x-ray was performed this morning. ASSESSMENT/PLAN: Isabella Sullivan is a 48-year-old female who came after a several month history of initially cough to be followed by progressive shortness of breath. She was found to have cardiomyopathy with severe left and right ventricular systolic dysfunction, most likely related to underlying alcohol use. Unfortunately simultaneously, there was a mass on CT and analysis of pleural fluid is positive for adenocarcinoma. At this point, her prognosis unfortunately became even worse. Even if she should survive her bout of congestive heart failure, which is far from likely, she is still left with stage IV CA. As far as the immediate issues are concerned, for the atrial fibrillation, I am going to start giving her amiodarone through the NG tube. I do not plan on cardioverting her. It seems like she hemodynamically tolerates the atrial fibrillation reasonably well and I think there is a reasonable chance that she will spontaneously convert with ongoing amiodarone use. I will talk to Dr. Oh about instituting anticoagulation. The second issue is that of congestive heart failure. She has severe left ventricular systolic dysfunction and remains quite hypotensive and is on pressors, but the blood pressure seems to be little bit better and I think that we can attempt to keep weaning her off if only possible. If anything dobutamine would be a better choice even though it unfortunately very often has a tachycardiac affect. Unfortunately with the results of cytology, I am extremely pessimistic about her prognosis. We are confronted in the situation where there is no clear-cut decision maker. She did not designate anybody before intubation and I am being told by nursing staff that her sister who is the closest of kin abdicated any responsibility for decision making so we are left with her roommate.
[2018-11-03] MEDS ORDERED: POTASSIUM CHLORIDE 10% LIQ 20 MEQ/15 ML UDC GT ONE (08:15)
[2018-11-03] MEDS: MOM 30ML SUSPENSION UDC PO SCH (08:58)
[2018-11-03] MEDS: CHLORHEXIDINE GLUCONATE 0.12 % 15ML UDC (PERIDEX ORAL RINSE) MT SCH (08:58)
[2018-11-03] MEDS: DOCUSATE SOD LIQ 100MG/10ML UDC GT SCH (08:58)
[2018-11-03] MEDS: PANTOPRAZOLE 40MG INJ (PROTONIX) (C9113) IV SCH (08:58)
[2018-11-03] MEDS: ENOXAPARIN 40 MG/0.4 ML SYRINGE (J1650) SC SCH (08:59)
[2018-11-03] MEDS ORDERED: SPIRONOLACTONE 12.5MG PER 1/2 TABLET NG SCH (09:00)
[2018-11-03] MEDS ORDERED: KCL 20MEQ IN 100ML SWI (KRUN) 20 MEQ in APPROPRIATE DILUENT 1 EA IV ONE ×2 (12:15)
[2018-11-03] MEDS: MIDAZOLAM HCL 100 MG in D5W 80 ML IV SCH ×2 (12:33→13:06)
[2018-11-03] MEDS ORDERED: ACETAMINOPHEN 650 MG SUPP PR PRN (16:00)
[2018-11-03] MEDS ORDERED: SCOPOLAMINE 1MG TRANSDERMAL PATCH TOP PRN (16:00)
[2018-11-03] MEDS ORDERED: FLEET ENEMA PR PRN (16:00)
[2018-11-03] MEDS ORDERED: ONDANSETRON 4MG/2ML VIAL (J2405) IV PRN (16:00)
[2018-11-03] MEDS ORDERED: BISACODYL 10 MG SUPP PR PRN (16:00)
[2018-11-03] MEDS ORDERED: AMIODARONE 200 MG TAB (PACERONE) NG SCH (21:00)
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
[2018-11-04] MEDS ORDERED: LORazepam 2 MG/ML VIAL (J2060) IV ONE (00:30)
[2018-11-04] MEDS: fentaNYL CITRATE 1,000 MCG in NS 80 ML IV SCH (07:05)
--- NOTE | 2018-11-04 16:01 | DS.PDOC ---
Discharge Summary General Date of Admission Oct 31, 2018 at 01:29 Date of Discharge November 04, 2018 Discharge Summary Expiration Summary: Patient is a 48 year female with no reported past medical history brought into the ER initially with A. fib RVR with heart rates in the 250s with complaints of persistent cough and shortness of breath for the past 3 months. She was found to have a large right hilar mass with extensive infiltrative process and sepsis secondary to likely postobstructive pneumonia. She was subsequently intubated and admitted to ICU for management. Course of admission complicated by recurrent A. fib with RVR despite multiple medications and was found to have biventricular heart failure. She has had chest tube placement for drainage of right pleural effusion. Patient was found to have metastatic adenocarcinoma. Findings and prognosis were discussed with family members and decision made for patient to be DNR and for palliative extubation. Which was patient's initial wish was for trial intubation only but does not want to remain on ventilator for a prolong period of time should her conditions decline. Patient was noted to pass this AM with prior comfort measures provided. Microbiology Microbiology 10/31/18 Blood Culture - Preliminary, Resulted No Growth after 72 hours. All specime... 10/31/18 Blood Culture - Preliminary, Resulted No Growth after 72 hours. All specime... 10/31/18 Acid Fast Stain, Received Pending 10/31/18 Mycobacterial Culture, Received Pending 10/31/18 Fungal Smear, Received Pending 10/31/18 Fungal Culture, Received Pending 10/31/18 Gram Stain - Final, Complete 10/31/18 Anaerobic Culture - Final, Complete 10/31/18 Body Fluid Culture - Final, Complete 11/01/18 MRSA Screen - Final, Complete Discharge Medications Scheduled PRN Diphenhydramine HCl (Benadryl) 25 Mg Cap, 25 MG PO DAILY PRN for ALLERGIES, (Reported) Naproxen Sodium (Aleve) 220 Mg Tab, 220 MG PO BID PRN for PAIN, (Reported) Allergies Coded Allergies: No Known Allergies (Unverified , 07/08/17) FRANC GARCIA MD Nov 04, 2018 16:01
--- NOTE | 2018-11-12 09:51 | RO ---
DATE OF PROCEDURE: 10/31/2018 PREPROCEDURE DIAGNOSIS: Right pleural effusion. POSTPROCEDURE DIAGNOSIS: Right pleural effusion. PROCEDURE: Insertion of right lateral chest tube with moderate sedation. SURGEON: Dr. Ganesh Paiz. Under satisfactory moderate sedation achieved with Versed, the patient was prepped and draped in the usual sterile fashion. The approximate 6th intercostal space was infiltrated with 1% Lidocaine and incision was made. A #24 chest tube was placed without difficulty and 1800 mL of serous sanguinous fluid was removed. The chest tube was secured to the chest wall with a #2 suture and it was connected to the Pleur-evac. Patient tolerated the procedure well and a chest x-ray is pending.
== END 2018-11-04 09:50 | disposition expired | DRG 136 ==
LOC: M ED 21:44 → M ED INP 10-31 01:29 → M ICU 10-31 02:35
PROVIDERS: ADMIT Student in an Organized Health Care Education/Training Program; ATTEND Student in an Organized Health Care Education/Training Program
PROC: 02HV33Z Insertion of Infusion Device into Superior Vena Cava, Percutaneous Approach (ICD-10-PCS; principal; 2018-10-31)
PROC: 0W9900Z Drainage of Right Pleural Cavity with Drainage Device, Open Approach (ICD-10-PCS; 2018-10-31)
PROC: 5A1945Z Respiratory Ventilation, 24-96 Consecutive Hours (ICD-10-PCS; 2018-11-02)
PROC: 0BH17EZ Insertion of Endotracheal Airway into Trachea, Via Natural or Artificial Opening (ICD-10-PCS; 2018-11-02)
DX: C34.81 Malignant neoplasm of overlapping sites of right bronchus and lung (principal); J96.01 Acute respiratory failure with hypoxia; I50.21 Acute systolic (congestive) heart failure; A41.9 Sepsis, unspecified organism; J91.0 Malignant pleural effusion; R57.0 Cardiogenic shock; R65.21 Severe sepsis with septic shock; J18.9 Pneumonia, unspecified organism; I47.2 Ventricular tachycardia; Z51.5 Encounter for palliative care; Z66 Do not resuscitate; E46 Unspecified protein-calorie malnutrition; E22.2 Syndrome of inappropriate secretion of antidiuretic hormone; I42.6 Alcoholic cardiomyopathy; E87.2 Acidosis; E83.51 Hypocalcemia; I48.91 Unspecified atrial fibrillation; D53.9 Nutritional anemia, unspecified; F10.20 Alcohol dependence, uncomplicated; J98.11 Atelectasis; Z87.891 Personal history of nicotine dependence; Z68.1 Body mass index [BMI] 19.9 or less, adult; Z96.643 Presence of artificial hip joint, bilateral